=== PATIENT | female | born 1990 | race Caucasian/White ===

== ENCOUNTER 2016-05-10 05:58 | Inpatient (IN) | payer OTHER ==
[2016-05-10] MEDS ORDERED: LACTATED RINGERS 1,000 ML IV ONE (06:11)
[2016-05-10] MEDS ORDERED: ceFAZolin 2 GM in SODIUM CHLORIDE 0.9% 100 ML IVPB ONE (06:11)
[2016-05-10] MEDS ORDERED: CITRIC ACID-SODIUM CITRATE 15 ML CUP PO ONE (06:11)
[2016-05-10 06:14] LABS: Glucose,Whole Blood 105 mg/dL (75-99)
[2016-05-10] MEDS ORDERED: LACTATED RINGERS 1,000 ML IV SCH (06:15)
[2016-05-10 06:23] VITALS: BMI 34.4
[2016-05-10 06:28] LABS: Anisocytosis Slight; Basophils % (A) 0 %; CH 22.8; CHCM 30.1; Eosinophils # (A) 0.1 k/uL (0-0.7); Eosinophils % (A) 2 %; HCT 25.1 % (34.0-46.0); HDW 3.97; HGB 7.5 gm/dL (11.4-16.0); Hypochromasia Marked; Luc # (Auto) 0.18; Luc % (Auto) 3; Lymphocytes # (A) 1.1 k/uL (1.0-4.8); Lymphocytes % (A) 17 %; MCH 22.9 pg (25.0-35.0); MCV 76.3 fL (80.0-100.0); Mean Platelet Volume 7.9; Microcytosis Slight; Monocytes # (A) 0.3 k/uL (0-1.0); Monocytes % (A) 5 %; Neutrophils # (A) 4.7 k/uL (1.3-7.7); Neutrophils % (A) 73 %; Poikilocytosis Slight; RDW 17.5 % (11.5-15.5); WBC 6.5 k/uL (3.8-10.6); WBC (Perox) 6.84
--- NOTE | 2016-05-10 07:52 | P.HPOB ---
History of Present Illness H&P Date: 05/10/16 Chief Complaint: IUP term: previous c/s 25 y/o female sched for repeat c/s. r/b/a reviewed in detail and all questions answered for her. complicated by gest DM A2 on oral hypogycemics. well controlled. also had itching likely PUPPS since mid third trimester treated with steroids with moderate success. denies other problems or issues. VSS and afebrile. Heart reg, Lung CTAB, Abd soft with + BS. ext without pain. Past Medical History Past Medical History: GERD/Reflux Additional Past Medical History / Comment(s): gestational diabetes History of Any Multi-Drug Resistant Organisms: None Reported Past Surgical History: Section Past Anesthesia/Blood Transfusion Reactions: No Reported Reaction Past Psychological History: No Psychological Hx Reported Smoking Status: Never smoker Past Alcohol Use History: None Reported Past Drug Use History: None Reported - Past Family History Mother Family Medical History: Cancer Additional Family Medical History / Comment(s): mother had cervical cancer Medications and Allergies Home Medications Medication Instructions Recorded Confirmed Type glyBURIDE [Glyburide] 1.25 mg PO BID 04/30/16 05/10/16 History Allergies Allergy/AdvReac Type Severity Reaction Status Date / Time No Known Allergies Allergy Verified 05/10/16 06:10 Exam Osteopathic Statement: *. No significant issues noted on an osteopathic structural exam other than those noted in the History and Physical/Consult. - Vital Signs Vital signs: Vital Signs Temp Pulse Resp BP Pulse Ox 05/10/16 06:19 97.6 F 116 H 18 116/69 99 Intake and Output 05/09/16 05/10/16 05/10/16 22:59 06:59 14:59 Other: Weight 91.172 kg - OBG Physical Exam Breast: both: normal (no masses) Abdomen: bowel sounds normal, no diffuse tenderness, no bruit present, no guarding noted, no hepatomegaly, no splenomegaly, no mass Vulva: both: normal Vagina: normal moisture, no discharge Cervix: no lesion, no discharge Uterus: normal size, normal contour Adnexa: both: normal Anus/Rectum: normal perianal skin, no rectal mass, no hemorrhoids, heme negative Results Result Diagrams: 05/10/16 06:15 Abnormal Lab Results - Last 24 Hours (Table) 05/10/16 05/10/16 Range/Units 06:11 06:15 RBC 3.30 L (3.80-5.40) m/uL Hgb 7.5 L (11.4-16.0) gm/dL Hct 25.1 L (34.0-46.0) % MCV 76.3 L (80.0-100.0) fL MCH 22.9 L (25.0-35.0) pg MCHC 30.0 L (31.0-37.0) g/dL RDW 17.5 H (11.5-15.5) % POC Glucose (mg/dL) 105 H (75-99) mg/dL
[2016-05-10] MEDS ORDERED: ONDANSETRON 4 MG/2 ML VIAL IVP PRN ×2 (08:13→08:51)
[2016-05-10] MEDS ORDERED: diphenhydrAMINE 50 MG/ML 1 ML VIAL IVP PRN ×3 (08:13→08:51)
[2016-05-10] MEDS ORDERED: NALOXONE 0.4 MG/ML 1 ML VIAL IV PRN ×2 (08:13→08:51)
[2016-05-10] MEDS ORDERED: MORPHINE SULFATE 4 MG/ML SYRINGE IVP PRN ×2 (08:13→10:40)
--- NOTE | 2016-05-10 08:34 | P.OP ---
Date of Procedure: 05/10/16 Preoperative Diagnosis: Intrauterine at term: Previous section: Gestation diabetes Postoperative Diagnosis: Same Procedure(s) Performed: Repeat low transverse section Anesthesia: spinal Surgeon: Trevor Robles Technical Sales Manager #1: Jered Funez Estimated Blood Loss (ml): 600 IV fluids (ml): 900 Urine output (ml): 100 Pathology: other (Placenta) Condition: stable Disposition: floor Operative Findings: Female scores of 9 and 9 at one and 5 minutes with a weight of 8 lbs. 13 oz. Description of Procedure: Patient was taken to the operating suite where a spinal anesthetic was found to be adequate. She was prepped and draped in the normal sterile fashion and placed in the dorsal supine position with leftward tilt. Initially a Pfannenstiel skin incision was made. This incision was then carried through to underlying layer of the fascia was second knife. Fascia was then nicked in the midline and this opening was extended laterally with Lorenzo scissors. Superior and inferior aspect of this incision were then grasped tented up and bluntly and sharply dissected off the rectus muscles. Rectus muscles were then divided the midline and sharp dissection through the peritoneum was made. This opening was then extended superiorly and inferiorly with good visualization of both bowel bladder. Bladder blade was then placed in the vesicouterine peritoneum identified. This tissue was then entered with Metzenbaum scissors and the opening was extended across face the uterus with the bladder flap being digitally created. Knife was then used to incise uterus hemostat was then used to open the incision and the incision was extended bluntly. Head was then atraumatically delivered. Anterior and posterior shoulders delivered gentle downward upper traction. Mouth nares were bulb suctioned again an nursery personnel was present to assume care following IV and cutting of the umbilical cord. Placenta was then delivered intact and Pitocin was added to the IV. Uterus was exteriorized cleared of clots and debris and closed in 2 layers with 0 Vicryl suture. Once excellent hemostasis was obtained blood and debris was suctioned from the posterior cul-de-sac and the uterus was reinserted into the abdomen. Peritoneal layer was then closed with 0 Vicryl suture fascial layer was closed with 0 Vicryl suture one layer of 3-0 Vicryl was placed in the deep subcuticular tissues and then the skin was closed with 3-0 Vicryl on a Willy needle. Sponge, lap, needle counts were all correct 2. Patient was taken to the recovery room in stable and satisfactory condition.
[2016-05-10] MEDS ORDERED: diphenhydrAMINE 25 MG CAP PO PRN (08:51)
[2016-05-10] MEDS ORDERED: METOCLOPRAMIDE 5 MG/ML 2 ML VIAL IVP PRN (08:51)
[2016-05-10] MEDS ORDERED: diphenhydrAMINE 50 MG CAP PO PRN (08:51)
[2016-05-10] MEDS ORDERED: ZOLPIDEM 5 MG TAB PO PRN (08:51)
[2016-05-10] MEDS ORDERED: ACETAMINOPHEN TAB 325 MG TAB PO PRN (08:51)
[2016-05-10] MEDS ORDERED: Acetaminophen-Codeine 300-30mg TAB PO PRN (08:51)
[2016-05-10 10:13] LABS: Hemoglobin A1C 4.9 % (4.2-6.1)
[2016-05-10] MEDS: SENNOSIDES-DOCUSATE SODIUM 1 EACH TAB PO SCH ×2 (10:51→21:28)
[2016-05-10] MEDS: LACTATED RINGERS 1,000 ML IV SCH ×2 (10:54→20:21)
[2016-05-10] MEDS: KETOROLAC 30 MG/ML 1 ML VIAL IVP PRN ×2 (15:11→21:27)
[2016-05-10] MEDS: OXYTOCIN 30 UNITS/500 ML NS 30 UNIT in SALINE 1 500ML.BAG IV SCH ×2 (20:20→20:21)
[2016-05-11] MEDS: OXYTOCIN 30 UNITS/500 ML NS 30 UNIT in SALINE 1 500ML.BAG IV SCH ×2 (00:23→06:00)
[2016-05-11] MEDS: LACTATED RINGERS 1,000 ML IV SCH (00:23)
[2016-05-11] MEDS: KETOROLAC 30 MG/ML 1 ML VIAL IVP PRN ×2 (03:49→10:35)
[2016-05-11 07:35] LABS: Anisocytosis Slight; Basophils % (A) 0 %; CH 22.7; CHCM 29.4; Eosinophils # (A) 0.1 k/uL (0-0.7); Eosinophils % (A) 2 %; HCT 23.2 % (34.0-46.0); HDW 3.87; Hypochromasia Marked; Luc # (Auto) 0.14; Luc % (Auto) 2; Lymphocytes # (A) 1.1 k/uL (1.0-4.8); Lymphocytes % (A) 17 %; MCH 22.8 pg (25.0-35.0); MCHC 29.2 g/dL (31.0-37.0); Mean Platelet Volume 8.2; Microcytosis Slight; Monocytes # (A) 0.3 k/uL (0-1.0); Monocytes % (A) 4 %; Neutrophils # (A) 4.7 k/uL (1.3-7.7); Neutrophils % (A) 74 %; Poikilocytosis Slight; RBC 2.98 m/uL (3.80-5.40); RDW 17.6 % (11.5-15.5); WBC 6.3 k/uL (3.8-10.6); WBC (Perox) 6.55
[2016-05-11 07:47] LABS: HGB 6.8 gm/dL (11.4-16.0)
[2016-05-11] MEDS ORDERED: OXYTOCIN 10 UNIT/ML 1 ML VIAL IM ONE (07:54)
[2016-05-11] MEDS ORDERED: ePHEDrine 50 MG/ML 1 ML AMP ONE (07:54)
[2016-05-11] MEDS ORDERED: KETOROLAC 30 MG/ML 1 ML VIAL ONE (07:54)
[2016-05-11] MEDS ORDERED: MORPHINE SULFATE (PF) 0.3 MG/0.3 ML SYR ONE (07:54)
[2016-05-11] MEDS ORDERED: NALBUPHINE 10 MG/ML AMPUL ONE (07:54)
[2016-05-11] MEDS ORDERED: MIDAZOLAM 2 MG/2 ML VIAL ONE (07:54)
[2016-05-11] MEDS: SENNOSIDES-DOCUSATE SODIUM 1 EACH TAB PO SCH ×2 (08:51→20:13)
--- NOTE | 2016-05-11 09:00 | P.PNOBGPC ---
Subjective - Subjective Principal diagnosis: Postop day 1 Interval history: Kiera is doing very well postop day 1. Pain is much better controlled today. She is involuting, voiding, and she is tolerating her diet. She voices no other complaints. We'll plan to continue current care. Patient reports: Reports appetite normal, Reports voiding normally, Reports pain well controlled, Reports ambulating normally : doing well Objective - Vital Signs Latest vital signs: Vital Signs Temp Pulse Pulse Resp BP BP Pulse Ox 05/11/16 08:00 97.4 F L 103 H 16 102/57 05/11/16 04:00 97.9 F 103 H 17 104/62 98 05/11/16 00:00 98.2 F 101 H 14 97/51 98 05/10/16 20:00 98.2 F 98 14 105/56 98 05/10/16 15:38 98.2 F 101 H 16 117/68 98 05/10/16 13:00 98.3 F 104 H 16 107/70 98 05/10/16 11:13 100 16 114/68 97 05/10/16 10:37 100 16 109/69 100 05/10/16 10:07 88 17 115/76 100 05/10/16 09:39 90 17 116/72 99 05/10/16 09:24 104 H 17 113/71 99 05/10/16 09:08 104 H 16 107/55 98 Intake and Output 05/10/16 05/11/16 05/11/16 22:59 06:59 14:59 Intake Total 1000 Output Total 500 700 Balance 500 -700 Intake: IV 1000 Lactated Ringers 1,000 ml 1000 @ 125 mls/hr IV .Q8H [facility] Rx#:[id number] Output: Urine 500 700 Uretheral ([place]) 200 Other: Voiding Method Toilet # Voids 1 1 - Exam Lungs: bilateral: normal Chest: Normal S1, Normal S2 Extremities: Present: normal Abdomen: Present: normal appearance, soft. Absent: distention, tenderness Incision: Present: normal, dry, intact Uterus: Present: normal, firm - Labs Labs: Abnormal Lab Results - Last 24 Hours (Table) 05/11/16 Range/Units 07:06 RBC 2.98 L (3.80-5.40) m/uL Hgb 6.8 L* (11.4-16.0) gm/dL Hct 23.2 L (34.0-46.0) % MCV 78.0 L (80.0-100.0) fL MCH 22.8 L (25.0-35.0) pg MCHC 29.2 L (31.0-37.0) g/dL RDW 17.6 H (11.5-15.5) %
--- NOTE | 2016-05-11 10:22 | P.PN ---
Progress Note - Text 0705 Anesthesia POD 1. Patient is status post section under spinal anesthesia with intra-thecal preservative free morphine []. [] pruritus, [] post-op analgesia, and [].
[2016-05-11] MEDS: Acetaminophen-Codeine 300-30mg TAB PO PRN (18:10)
[2016-05-11] MEDS: IBUPROFEN 600 MG TAB PO PRN (22:59)
[2016-05-12] MEDS: Acetaminophen-Codeine 300-30mg TAB PO PRN ×2 (02:58→19:32)
--- NOTE | 2016-05-12 06:31 | P.PNOBGPC ---
Subjective - Subjective Patient reports: Reports appetite normal, Reports voiding normally, Reports pain well controlled, Reports ambulating normally : doing well Objective - Vital Signs Latest vital signs: Vital Signs Temp Pulse Resp BP BP Pulse Ox 05/12/16 00:00 98.1 F 108 H 14 118/68 98 05/11/16 16:00 97.8 F 105 H 16 106/69 05/11/16 08:00 97.4 F L 103 H 16 102/57 - Exam Lungs: bilateral: normal Chest: Normal S1, Normal S2 Extremities: Present: normal Abdomen: Present: normal appearance, soft. Absent: distention, tenderness Incision: Present: normal, dry, intact Uterus: Present: normal, firm - Labs Labs: Abnormal Lab Results - Last 24 Hours (Table) 05/11/16 Range/Units 07:06 RBC 2.98 L (3.80-5.40) m/uL Hgb 6.8 L* (11.4-16.0) gm/dL Hct 23.2 L (34.0-46.0) % MCV 78.0 L (80.0-100.0) fL MCH 22.8 L (25.0-35.0) pg MCHC 29.2 L (31.0-37.0) g/dL RDW 17.6 H (11.5-15.5) % Assessment and Plan (1) Chronic anemia Narrative/Plan: This is postoperative day #2. Patient is resting without new complaints. Some mild tachycardia but otherwise vital signs are stable and she is afebrile. Hemoglobin yesterday was 6.8 postoperatively, preoperatively it was 7.5. Apparently this patient is a chronically anemic and has not been taking her iron therapy. Dr. Robles has asked Dr. Goff to see this patient for continued management and evaluation of her anemia. It appears her anemia is chronic in nature and secondary to noncompliance with iron therapy. At this point her hemoglobin is stable and she is fairly asymptomatic therefore no continued management is necessary in regards to her anemia. Today we will continue routine postoperative care and most likely discharge home tomorrow. Current Visit: Yes Status: Acute Code(s): D64.9 - ANEMIA, UNSPECIFIED SNOMED Code(s): 619368631 (2) delivery delivered Current Visit: Yes Status: Acute Code(s): O82 - ENCOUNTER FOR DELIVERY WITHOUT INDICATION SNOMED Code(s): 075851254
[2016-05-12] MEDS: SENNOSIDES-DOCUSATE SODIUM 1 EACH TAB PO SCH ×2 (08:07→19:33)
[2016-05-12] MEDS: IBUPROFEN 600 MG TAB PO PRN ×2 (08:07→13:56)
[2016-05-12 08:18] LABS: Anisocytosis Slight; Basophils % (A) 0 %; CH 23.2; CHCM 29.6; Eosinophils # (A) 0.2 k/uL (0-0.7); Eosinophils % (A) 4 %; HCT 22.7 % (34.0-46.0); HDW 3.79; Hypochromasia Marked; Luc # (Auto) 0.15; Luc % (Auto) 3; Lymphocytes # (A) 1.3 k/uL (1.0-4.8); Lymphocytes % (A) 21 %; MCHC 29.1 g/dL (31.0-37.0); MCV 78.9 fL (80.0-100.0); Mean Platelet Volume 9.5; Microcytosis Slight; Monocytes # (A) 0.2 k/uL (0-1.0); Monocytes % (A) 3 %; Neutrophils # (A) 4.1 k/uL (1.3-7.7); Neutrophils % (A) 69 %; Poikilocytosis Slight; RBC 2.87 m/uL (3.80-5.40); RDW 17.9 % (11.5-15.5); Reticulocyte % 3.6 % (0.5-2.0); WBC (Perox) 5.89
[2016-05-12 08:21] LABS: HGB 6.6 gm/dL (11.4-16.0)
[2016-05-12 16:36] LABS: Iron 24 ug/dL (37-170)
[2016-05-12 16:47] LABS: % Iron Saturation 4.9 % (20-50); Total Iron Binding Capacity 492 ug/dL (265-497)
[2016-05-12 17:26] LABS: Vitamin B12 <159 pg/mL (239-931)
[2016-05-12 17:44] VITALS: RESP 18
[2016-05-12] MEDS ORDERED: SODIUM FERRIC GLUCONAT-SUCROSE 125 MG in SODIUM CHLORIDE 0.9% 100 ML IVPB ONE (20:08)
--- NOTE | 2016-05-12 20:23 | P.CONS ---
History of Present Illness - Reason for Consult Consult date: 05/12/16 Severe microcytic anemia - History of Present Illness The patient is a 25-year-old lady, who was admitted for section, that was performed yesterday, with delivery of healthy female . On admission her hemoglobin was 7.5, with low MCV in the 70 range. Subsequently hemoglobin fell to 6.8. Consult was placed for further evaluation. Her labs were reviewed in the chart. In 10/25, during her previous delivery, hemoglobin had been as low as 5.9, also with low MCV. During this , between 10/27 and 12/27, hemoglobin was again low in the 10-11 range with low MCV. Other CBC indices, including white cells and platelets were normal. The patient denies any unusual bleeding. She has not been taking her vitamins. She states that she has been told in the past that she needs to take iron but was unable to tolerate even low-dose of iron PO due to severe constipation. Review of Systems Constitutional: Reports fatigue, Reports weight gain (Due to ) Eyes: denies blurred vision, denies pain Ears: deny: decreased hearing, ear discharge, earache, tinnitus Ears, nose, mouth and throat: Denies headache, Denies sore throat Cardiovascular: Reports decreased exercise tolerance Respiratory: Denies cough Gastrointestinal: Denies abdominal pain, Denies diarrhea, Denies nausea, Denies vomiting Genitourinary: Denies dysuria, Denies hematuria Musculoskeletal: Denies myalgias Integumentary: Denies pruritus, Denies rash Neurological: Denies numbness, Denies weakness Psychiatric: Denies anxiety, Denies depression Endocrine: Reports high blood sugars Hematologic/Lymphatic: Reports as per HPI Past Medical History Past Medical History: GERD/Reflux Additional Past Medical History / Comment(s): gestational diabetes History of Any Multi-Drug Resistant Organisms: None Reported Past Surgical History: Section Past Anesthesia/Blood Transfusion Reactions: No Reported Reaction Past Psychological History: No Psychological Hx Reported Smoking Status: Never smoker Past Alcohol Use History: None Reported Past Drug Use History: None Reported - Past Family History Mother Family Medical History: Cancer Additional Family Medical History / Comment(s): mother had cervical cancer Medications and Allergies Home Medications Medication Instructions Recorded Confirmed Type glyBURIDE [Glyburide] 1.25 mg PO BID 04/30/16 05/10/16 History Allergies Allergy/AdvReac Type Severity Reaction Status Date / Time No Known Allergies Allergy Verified 05/10/16 06:10 Physical Exam Vitals: Vital Signs Temp Pulse Pulse Resp BP BP BP 05/12/16 17:42 97.7 F 94 18 116/69 05/12/16 10:37 97.9 F 108 H 16 113/73 05/12/16 09:55 97.6 F 105 H 17 112/73 05/12/16 09:25 97.5 F L 103 H 17 113/75 05/12/16 09:15 97.6 F 108 H 16 120/78 05/12/16 08:00 97.6 F 95 16 104/73 05/12/16 00:00 98.1 F 108 H 14 118/68 Pulse Ox 05/12/16 17:42 100 05/12/16 10:37 05/12/16 09:55 05/12/16 09:25 05/12/16 09:15 05/12/16 08:00 05/12/16 00:00 98 Intake and Output 05/12/16 05/12/16 05/12/16 06:59 14:59 22:59 Intake Total 310 Balance 310 Intake: Blood Product 310 Rc As-1 Unit 310 [id number] - Constitutional General appearance: no acute distress - EENT Eyes: EOMI, PERRLA ENT: hearing grossly normal, normal oropharynx - Neck Neck: no lymphadenopathy Thyroid: bilateral: normal size - Respiratory Respiratory: bilateral: CTA - Cardiovascular Rhythm: regular Heart sounds: normal: S1, S2 - Gastrointestinal General gastrointestinal: distended - Integumentary Integumentary: normal - Neurologic Neurologic: CNII-XII intact - Musculoskeletal Musculoskeletal: strength equal bilaterally - Psychiatric Psychiatric: A&O x's 3, appropriate affect Results CBC & Chem 7: 05/12/16 07:49 Labs: Abnormal Lab Results - Last 24 Hours (Table) 05/10/16 05/12/16 05/12/16 Range/Units 06:15 07:49 07:49 RBC 2.87 L (3.80-5.40) m/uL Hgb 6.6 L* (11.4-16.0) gm/dL Hct 22.7 L (34.0-46.0) % MCV 78.9 L (80.0-100.0) fL MCH 23.0 L (25.0-35.0) pg MCHC 29.1 L (31.0-37.0) g/dL RDW 17.9 H (11.5-15.5) % Retic Count 3.6 H (0.5-2.0) % Iron 24 L (37-170) ug/dL % Saturation 4.9 L (20-50) % Ferritin 5 L (6-137) ng/mL Vitamin B12 <159 L (239-931) pg/mL Crossmatch See Detail Assessment and Plan (1) Chronic anemia Narrative/Plan: As noted in the HPI, the patient is fairly chronic microcytic anemia. Reviewing her previous , also, her hemoglobin dropped significantly. The clinical picture is quite consistent with iron deficiency, from her regular menses, as well as pregnancies. The patient has not been taking any iron supplementation. This is due to GI intolerance of even low doses of by mouth iron. In addition the patient states that she has not even been taking her 's. Has hemoglobin was still low today with some tachycardia, I recommended that she will transfuse a unit of blood that was on hold. Anemia workup has been ordered. Assuming that labs confirm iron deficiency, she will be treated with IV iron, starting now, and continuing in the outpatient setting with monitoring in the office. Additional supplementation will be ordered as appropriate, if the patient is found to have other deficiencies Status: Acute
[2016-05-12] MEDS: CYANOCOBALAMIN 1,000 MCG/ML 1 ML VIAL IM SCH (20:57)
[2016-05-12] MEDS: FOLIC ACID 1 MG TAB PO SCH (20:57)
[2016-05-13] MEDS: IBUPROFEN 600 MG TAB PO PRN (02:17)
--- NOTE | 2016-05-13 06:40 | P.PNOBGPC ---
Subjective - Subjective Patient reports: Reports appetite normal, Reports voiding normally, Reports pain well controlled, Reports ambulating normally : doing well Objective - Vital Signs Latest vital signs: Vital Signs Temp Pulse Pulse Resp BP BP BP 05/13/16 00:00 97.6 F 100 18 113/77 05/12/16 17:42 97.7 F 94 18 116/69 05/12/16 10:37 97.9 F 108 H 16 113/73 05/12/16 09:55 97.6 F 105 H 17 112/73 05/12/16 09:25 97.5 F L 103 H 17 113/75 05/12/16 09:15 97.6 F 108 H 16 120/78 05/12/16 08:00 97.6 F 95 16 104/73 Pulse Ox 05/13/16 00:00 100 05/12/16 17:42 100 05/12/16 10:37 05/12/16 09:55 05/12/16 09:25 05/12/16 09:15 05/12/16 08:00 Intake and Output 05/12/16 05/12/16 05/13/16 14:59 22:59 06:59 Intake Total 310 200 Balance 310 200 Intake: IV 100 Invasive Line 1 100 Intake, IV Titration 100 Amount Sodium Ferric Gluconat- 100 Sucrose 125 mg In Sodium Chloride 0.9% 100 ml @ 100 mls/hr IVPB ONCE ONE Rx#:[id number] Blood Product 310 Rc As-1 Unit 310 [id number] - Exam Lungs: bilateral: normal Chest: Normal S1, Normal S2 Extremities: Present: normal Abdomen: Present: normal appearance, soft. Absent: distention, tenderness Incision: Present: normal, dry, intact Uterus: Present: normal, firm - Labs Labs: Abnormal Lab Results - Last 24 Hours (Table) 05/10/16 05/12/16 05/12/16 Range/Units 06:15 07:49 07:49 RBC 2.87 L (3.80-5.40) m/uL Hgb 6.6 L* (11.4-16.0) gm/dL Hct 22.7 L (34.0-46.0) % MCV 78.9 L (80.0-100.0) fL MCH 23.0 L (25.0-35.0) pg MCHC 29.1 L (31.0-37.0) g/dL RDW 17.9 H (11.5-15.5) % Retic Count 3.6 H (0.5-2.0) % Iron (37-170) ug/dL % Saturation (20-50) % Ferritin (6-137) ng/mL Vitamin B12 (239-931) pg/mL RBC Folate 1,424 H (280 - 791) ng/mL Crossmatch See Detail 05/12/16 Range/Units 07:49 RBC (3.80-5.40) m/uL Hgb (11.4-16.0) gm/dL Hct (34.0-46.0) % MCV (80.0-100.0) fL MCH (25.0-35.0) pg MCHC (31.0-37.0) g/dL RDW (11.5-15.5) % Retic Count (0.5-2.0) % Iron 24 L (37-170) ug/dL % Saturation 4.9 L (20-50) % Ferritin 5 L (6-137) ng/mL Vitamin B12 <159 L (239-931) pg/mL RBC Folate (280 - 791) ng/mL Crossmatch Assessment and Plan (1) Chronic anemia Narrative/Plan: This is postoperative day #3. Patient is resting without new complaints. Patient was seen by Dr. Tan yesterday and given one unit of blood and an iron infusion. Patient is tolerating regular diet, ambulating, urinating without difficulty. Patient's felt be stable for discharge home. Patient discharge home follow up with Dr. Robles next week. She will continue to follow up with Dr. Goff thereafter to see if she needs another iron infusion for further management of her anemia as necessary. Current Visit: Yes Status: Acute Code(s): D64.9 - ANEMIA, UNSPECIFIED SNOMED Code(s): 075887730 (2) delivery delivered Current Visit: Yes Status: Acute Code(s): O82 - ENCOUNTER FOR DELIVERY WITHOUT INDICATION SNOMED Code(s): 034200507
--- NOTE | 2016-05-13 06:43 | P.DS ---
Providers Date of admission: 05/10/16 05:58 Expected date of discharge: 05/13/16 Attending physician: Trevor Robles Consults: 05/11/16 15:14 Consult Physician Stat Consulting Provider: Vinicius Goff Consult Reason/Comments: critical hemoglobin value Do you want consulting provider notified?: Already Contacted Primary care physician: Mulugeta Stevenson - Discharge Diagnosis(es) (1) Chronic anemia Current Visit: Yes Status: Acute (2) delivery delivered Current Visit: Yes Status: Acute Hospital Course: Please see dictated H&P and operative note per Dr. Robles on this patient. In brief summary this is a 27-year-old 3 para 1 female 39 weeks with known chronic anemia who is admitted for elective repeat section. Patient undergoes a repeat low transverse section for a viable female . Preoperative hemoglobin is 7-1/2 and postoperative hemoglobin was 6.8. Consultation was obtained with Dr. Goff and she was given a unit of blood and also an iron infusion. Postoperative day #3 she is felt be stable for discharge home follow up as an outpatient with Dr. Robles and Dr. Goff Procedures: Repeat low transverse section Patient Condition at Discharge: Fair Plan - Discharge Summary New Discharge Prescriptions: Acetaminophen-Codeine 300-30mg [Tylenol #3] 1 tab PO Q4H PRN #30 tablet PRN Reason: Pain Ibuprofen [Motrin] 600 mg PO Q6HR PRN #30 tab PRN Reason: Pain Discharge Medication List glyBURIDE [Glyburide] 1.25 mg PO BID 04/30/16 [History] Acetaminophen-Codeine 300-30mg [Tylenol #3] 1 tab PO Q4H PRN #30 tablet [Rx] Ibuprofen [Motrin] 600 mg PO Q6HR PRN #30 tab 05/11/16 [Rx] Follow up Appointment(s)/Referral(s): Trevor Robles DO [Doctor of Osteopathic Medicine] - 05/21/16 1:30 pm (Patient also has a check on June 21 at 10:30 AM.) Activity/Diet/Wound Care/Special Instructions: No heavy lifting, limit stairs and driving and pelvic rest. If any high temperatures, heavy bleeding, or severe pain call my office Discharge Disposition: HOME SELF-CARE
[2016-05-13 09:06] VITALS: BP 137/69; PULSE 99; TEMP 98
[2016-05-13] MEDS: CYANOCOBALAMIN 1,000 MCG/ML 1 ML VIAL IM SCH (10:27)
[2016-05-13] MEDS: FOLIC ACID 1 MG TAB PO SCH (10:27)
[2016-05-13] MEDS: SENNOSIDES-DOCUSATE SODIUM 1 EACH TAB PO SCH (10:57)
--- NOTE | 2016-05-13 16:56 | P.PN ---
Subjective Principal diagnosis: severe anemia Pt seen today in follow up, she is denying any severe hemorrhage. She did receive a dose of venofer with no c/o. Objective - Vital Signs Vital signs: Vital Signs Temp 98.0 F 05/13/16 08:00 Pulse 99 05/13/16 08:00 Resp 18 05/13/16 08:00 BP 137/69 05/13/16 08:00 Pulse Ox 100 05/13/16 08:00 Intake & Output 05/12/16 05/13/16 05/13/16 18:59 06:59 18:59 Intake Total 310 200 Balance 310 200 Intake: IV 100 Invasive Line 1 100 Intake, IV Titration 100 Amount Sodium Ferric Gluconat- 100 Sucrose 125 mg In Sodium Chloride 0.9% 100 ml @ 100 mls/hr IVPB ONCE ONE Rx#:[id number] Blood Product 310 Rc As-1 Unit 310 [id number] - Constitutional General appearance: Present: average body habitus, cooperative, no acute distress - Integumentary Integumentary: Present: normal turgor, pale - Neurologic Neurologic: Present: CNII-XII intact - Musculoskeletal Musculoskeletal: Present: strength equal bilaterally - Psychiatric Psychiatric: Present: A&O x's 3, appropriate affect, intact judgment & insight - Labs CBC & Chem 7: 05/12/16 07:49 Labs: Abnormal Lab Results - Last 24 Hours (Table) 05/12/16 05/12/16 Range/Units 07:49 07:49 Iron 24 L (37-170) ug/dL % Saturation 4.9 L (20-50) % Ferritin 5 L (6-137) ng/mL Vitamin B12 <159 L (239-931) pg/mL RBC Folate 1,424 H (280 - 791) ng/mL Assessment and Plan (1) Iron deficiency anemia Status: Acute (2) B12 deficiency anemia Status: Acute Plan: Pt has severe deficiency of iron and B12, she received a dose of venofer and a B12 injection. Rx were given to pt for oral b12 and folic acid. I told her that our office will check with her insurance and find out how she can receive more parenteral iron as she does not tolerate oral iron well at all due to severe constipation. Once pt has received course of IV iron she will follow up with Dr. Goff for reevaluation of iron stores.
== END 2016-05-13 12:30 | disposition home or self-care (01) | DRG 766 ==
LOC: 4FBP 05:58
PROVIDERS: ADMIT Obstetrics & Gynecology; ATTEND Obstetrics & Gynecology
PROC: 30233N1 Transfusion of Nonautologous Red Blood Cells into Peripheral Vein, Percutaneous Approach (ICD-10-PCS; principal; 2016-05-10 08:00)
PROC: 10D00Z1 Extraction of Products of Conception, Low, Open Approach (ICD-10-PCS; principal; 2016-05-10 08:00)
DX: O34.211 Maternal care for low transverse scar from previous cesarean delivery (principal); D51.9 Vitamin B12 deficiency anemia, unspecified; Z37.0 Single live birth; O24.425 Gestational diabetes mellitus in childbirth, controlled by oral hypoglycemic drugs; O26.86 Pruritic urticarial papules and plaques of pregnancy (PUPPP); O99.02 Anemia complicating childbirth; Z91.14 Patient's other noncompliance with medication regimen; Z3A.39 39 weeks gestation of pregnancy
CPT/HCPCS: 82607; 82728; 82747; 83010; 83036; 83540; 83550; 85025; 85045; 86850; 86900; 86901; 86920; 88307

== ENCOUNTER → 2016-12-07 | Outpatient (CLI) | payer OTHER ==
[2016-12-07 16:24] LABS: CH 27.9; CHCM 33.9; HCT 38.2 % (34.0-46.0); HGB 12.4 gm/dL (11.4-16.0); MCH 26.7 pg (25.0-35.0); MCHC 32.4 g/dL (31.0-37.0); MCV 82.5 fL (80.0-100.0); Mean Platelet Volume 7.4; RBC 4.64 m/uL (3.80-5.40); RDW 15.4 % (11.5-15.5); WBC 6.9 k/uL (3.8-10.6)
--- NOTE | 2016-12-07 16:28 | US ---
EXAMINATION TYPE: US OB <= 14 wk fetus DATE OF EXAM: 12/07/2016 COMPARISON: NONE CLINICAL HISTORY: Z36 Confirm dates. Confirm dates EXAM PERFORMED: Transabdominal (TA) EXAM MEASUREMENTS: GESTATIONAL AGE / DATING Physician Established: (9 weeks/5 days) EDC: 07/07/2017 Dates by LMP: ( 9 weeks/5 days) EDC: 07/07/2017 Dates by First Scan: This is first scan Dates by Current Scan for: ( 9 weeks/4 days) EDC: 07/08/2017 MATERNAL ANATOMY Uterus: 8.2 x 7.2 x 9.4cm, retroverted Right Ovary: 2.7 x 1.7 x 1.9cm Left Ovary: 2.5 x 2.0 x 1.8cm Post CDS / Adnexa: wnl Presence of free fluid: no Presence of corpus luteal cyst: not seen at this time Presence of subchorionic bleed: 2.8 x 0.8 x 2.6cm hypoechoic area superior to gestational sac GESTATION / SURVEY CRL: 2.7cm (9 weeks/4 days) Yolk Sac (normal less than 6mm): not seen at this time Heart Rate: 170 bpm Rhythm: Normal IUP: Viable IUP Date of LMP: 09/30/16 Beta HcG (if available): Not available at time of exam Viable single IUP measuring 9 weeks 4 days with a heart rate of 170bpm and an estimated delivery date of 07/08/2017, elongated 2.8cm hypoechoic area superior to gestation sac, possible subchorionic blee d. Single live intrauterine gestation is confirmed as gestational sac and pole are identified. Yol k sac is not clearly identified. No free fluid is seen in pelvic cul-de-sac. Along superior aspect of uterus there is curvilinear fluid collection measuring 2.8 x 0.8 x 2.6 cm brielle towards end of study felt to reflect small subchorionic hemorrhage. Both ovaries are identified. There is no suspicious extraovarian adnexal mass seen. IMPRESSION: Single live intrauterine gestation is confirmed, mean crown-rump length is 2.7 cm corresponding to 9 week 4 day old fetus.
[2016-12-07 17:03] LABS: Glucose 82 mg/dL (74-99); Non-African American GFR(MDRD) >60 (>60 ml/min/1.73 sqM)
[2016-12-07 17:44] LABS: Hepatitis B Surface Ag Index 0.07
[2016-12-07 17:52] LABS: Vitamin B12 247 pg/mL (239-931)
[2016-12-07 20:56] LABS: Hemoglobin A1C 4.6 % (4.2-6.1)
[2016-12-08 02:30] LABS: Iron 41 ug/dL (50-170); Iron Saturation 11.55 (12.00-45.00); Total Iron Binding Capacity 355 ug/dL (228-460)
[2016-12-08 02:36] LABS: Treponemal Ab Non-Reactive (Non-Reactive)
== END | disposition home or self-care (01) ==
LOC: RADUSWWP 15:38
PROVIDERS: ATTEND Obstetrics & Gynecology
DX: Z36 Encounter for antenatal screening of mother (principal); O26.811 Pregnancy related exhaustion and fatigue, first trimester; Z3A.09 9 weeks gestation of pregnancy
CPT/HCPCS: 36415; 76801; 82565; 82607; 82728; 82947; 83036; 83540; 83550; 85027; 86762; 86780; 86850; 86870; 86880; 86886; 86900; 86901; 86902; 87340; 87390

== ENCOUNTER → 2017-03-25 | Outpatient (CLI) | payer OTHER | END | disposition home or self-care (01) | LOC: LABWHC1 09:37 | PROVIDERS: ATTEND Obstetrics & Gynecology | DX: Z34.82 Encounter for supervision of other normal pregnancy, second trimester (principal); Z3A.00 Weeks of gestation of pregnancy not specified | CPT/HCPCS: 36415; 82950 ==

== ENCOUNTER 2017-04-19 22:35 | Observation (INO) | payer OTHER ==
[2017-04-20 00:58] LABS: Basophils % (A) 0 %; Eosinophils # (A) 0.1 k/uL (0-0.7); Eosinophils % (A) 1 %; HCT 30.7 % (34.0-46.0); HGB 10.1 gm/dL (11.4-16.0); Hypochromasia Slight; Lymphocytes # (A) 1.4 k/uL (1.0-4.8); Lymphocytes % (A) 16 %; MCH 27.3 pg (25.0-35.0); MCHC 32.8 g/dL (31.0-37.0); MCV 83.1 fL (80.0-100.0); Mean Platelet Volume 7.1; Monocytes # (A) 0.4 k/uL (0-1.0); Monocytes % (A) 4 %; Neutrophils # (A) 6.8 k/uL (1.3-7.7); Neutrophils % (A) 76 %; Platelet Count 220 k/uL (150-450); Poikilocytosis Slight; RDW 15.5 % (11.5-15.5); WBC 8.9 k/uL (3.8-10.6)
[2017-04-20 09:28] VITALS: BP 98/53; PULSE 100; RESP 18; TEMP 99.3; BMI 32.2
--- NOTE | 2017-04-20 10:49 | US ---
EXAMINATION TYPE: US OB >= 14 wk fetus DATE OF EXAM: 04/20/2017 COMPARISON: None CLINICAL HISTORY: bleeding 28 weeks gestation History of low lying placenta, vaginal bleeding TECHNIQUE: Transabdominal (TA) GESTATIONAL AGE / DATING Physician Established: (28 weeks/6 days) EDC: 07/07/17 Dates by LMP: (28 weeks/6 days) EDC: 07/07/17 Dates by First Scan: (28 weeks/5 days) EDC: 07/08/17 Dates by Current Scan: (28 weeks/4 days) EDC: 07/09/17 SURVEY IUP: Single PLACENTA: Posterior PREVIA: Low Lying. This appears to terminate approximately 7 mm from the internal cervical os. KATHE: 13.0 cm Normal CERVICAL LENGTH (transabdominal: norm > 3.0cm): 3.9 cm BIOMETRY PRESENTATION: Vertex LIE: Longitudinal BPD: 7.3 cm 29 weeks / 1 days HC: 26.5 cm 28 weeks / 6 days AC: 24.8 cm 29 weeks / 0 days FL: 5.4 cm 28 weeks / 5 days ESTIMATED WEIGHT IN GRAMS: 1309 grams ESTIMATED WEIGHT IN LBS/OZ: 2 lbs. 14 oz. WEIGHT PERCENTAGE BASED ON ESTABLISHED DATES: 39.7% HC/AC: 1.07 Normal FL/AC: 21.93 Normal HEART RATE: 133 bpm RHYTHM: Normal Single live IUP 28wks/4days with OLYA of 07/09/17. Placenta appears low lying at this time. Technical limitations due to position. IMPRESSION: 1. Single live intrauterine with a sonographic age of 28 weeks and 4 days and estimated joanne e of delivery of 07/09/2017 concordant with menstrual age. 2. Grade 1 placenta previa (low-lying placenta). Surveillance is recommended in addition to repeat ul trasound at 32 weeks to assess for migration.
--- NOTE | 2017-04-20 13:16 | P.HPOB ---
History of Present Illness H&P Date: 04/20/17 Chief Complaint: Intrauterine at 28 weeks gestation with bleeding Kiera is a 26-year-old at 28 weeks gestation who arrives last night complaining of vaginal bleeding. She has a history of vaginal bleeding over the last several weeks and has seen maternal medicine about this. Her course is also, K by positive Rh antibody for anti-E. She furthermore failed her 1 hour Glucola screen and therefore I am be exercising caution and not giving steroids at this time due to Elias speaking with maternal - medicine this morning. Patient relates that after seen yesterday and having a long conversation about her not coming to the hospital despite having recurrent episodes of bleeding. She was evaluated by maternal- medicine at least a couple weeks ago and was noted to have low-lying placenta at that time but no other findings were noted. In seeing her this morning. 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 At this time there is scant to no bleeding. I did call and speak with Dr. Romo at the [address] [place] [phone] medicine and a decision to discharge her and have her be reevaluated at maternal- medicine stay was made. With no active bleeding noted and baby having a reactive strip despite being only 28 weeks 5 days gestation will plan to discharge her this morning and she'll follow up with them later today. She is aware that the bleeding risk is something we cannot really explain at this time but that is significantly impacting the and creating a even higher risk for her during the . On physical exam vital signs are stable and afebrile. Heart regular, lungs clear, extremities are without pain. Scant bleeding is noted no source for bleeding could be elucidated. Ultrasound was done and other than low-lying placenta again being discovered no other findings are noted. Assessment intrauterine 29 weeks. Plan Will discharge her to [facility] today and she will follow up with them today and await further recommendations. Past Medical History Past Medical History: GERD/Reflux Additional Past Medical History / Comment(s): gestational diabetes with two previous pregnancies History of Any Multi-Drug Resistant Organisms: None Reported Past Surgical History: Section Additional Past Surgical History / Comment(s): c/s x 2, bunionectomy, left foot surgery to remove wood injury Past Anesthesia/Blood Transfusion Reactions: No Reported Reaction Additional Past Anesthesia/Blood Transfusion Reaction / Comment(s): pos blood type, pos blood antibody. Past Psychological History: No Psychological Hx Reported Smoking Status: Never smoker Past Alcohol Use History: None Reported Past Drug Use History: None Reported - Past Family History Mother Family Medical History: Cancer Additional Family Medical History / Comment(s): mother had cervical cancer Medications and Allergies Home Medications Medication Instructions Recorded Confirmed Type No Known Home Medications [No 04/20/17 04/20/17 History Known Home Medications] Allergies Allergy/AdvReac Type Severity Reaction Status Date / Time No Known Allergies Allergy Verified 04/20/17 00:01 Exam Osteopathic Statement: *. No significant issues noted on an osteopathic structural exam other than those noted in the History and Physical/Consult. - Vital Signs Vital signs: Vital Signs Temp Pulse Resp BP Pulse Ox 04/20/17 09:16 99.3 F 100 18 98/53 98 04/20/17 08:30 99.3 F 100 18 98/53 98 Intake and Output 04/19/17 04/20/17 04/20/17 22:59 06:59 14:59 Other: Weight 85.275 kg 85.275 kg Patient Weight 04/21/17 06:59 Weight 85.275 kg Results Result Diagrams: 04/20/17 00:40 Abnormal Lab Results - Last 24 Hours (Table) 04/20/17 Range/Units 00:40 RBC 3.70 L (3.80-5.40) m/uL Hgb 10.1 L (11.4-16.0) gm/dL Hct 30.7 L (34.0-46.0) %
--- NOTE | 2017-04-20 13:18 | P.DS ---
Providers Date of admission: 04/20/17 00:01 Expected date of discharge: 04/20/17 Attending physician: Jacey Whtilock Primary care physician: Stated None Hospital Course: Kiera was seen and evaluated and discharged to drive to [place] on this afternoon and be reevaluated by maternal medicine since she has no active bleeding at this time. All questions are answered for her and she is stable for discharge at this time no other changes are noted. Patient Condition at Discharge: Stable Plan - Discharge Summary Discharge Rx Participant: No New Discharge Prescriptions: No Action No Known Home Medications [No Known Home Medications] Discharge Medication List No Known Home Medications [No Known Home Medications] 04/20/17 [History] Activity/Diet/Wound Care/Special Instructions: DISCHARGE HOME. BEDREST WITH LIGHT ACTIVITY. PELVIC REST. NO INTERCOURSE. KEEP SCHEDULED APPT WITH DR JAVIER AT [facility] IN [place]. Discharge Disposition: HOME SELF-CARE
== END 2017-04-20 11:30 | disposition home or self-care (01) ==
LOC: FBPOP 22:35 → 4FBP 04-20 00:01
PROVIDERS: ADMIT Obstetrics & Gynecology; ATTEND Obstetrics & Gynecology
DX: O46.93 Antepartum hemorrhage, unspecified, third trimester (principal); Z3A.28 28 weeks gestation of pregnancy; K21.9 Gastro-esophageal reflux disease without esophagitis; O99.613 Diseases of the digestive system complicating pregnancy, third trimester; Z86.32 Personal history of gestational diabetes; O34.219 Maternal care for unspecified type scar from previous cesarean delivery; Z80.49 Family history of malignant neoplasm of other genital organs; O44.43 Low lying placenta NOS or without hemorrhage, third trimester
CPT/HCPCS: 59025; 86900; 86901; 86902; 85025; 86850; 86870; 86880; 76805; G0463; G0378; 99213

== ENCOUNTER → 2017-04-27 | Outpatient (CLI) | payer OTHER ==
[~2017-04-27] MED LIST: LACTATED RINGERS 1,000 ML IV SCH
[2017-04-27 21:32] LABS: Partial Thromboplastin Time 23.9 sec (22.0-30.0); Prothrombin Time 9.6 sec (9.0-12.0)
[2017-04-27 21:34] LABS: Basophils % (A) 0 %; Eosinophils # (A) 0.1 k/uL (0-0.7); Eosinophils % (A) 2 %; HGB 9.3 gm/dL (11.4-16.0); Hypochromasia Slight; Lymphocytes # (A) 1.7 k/uL (1.0-4.8); Lymphocytes % (A) 21 %; MCH 26.2 pg (25.0-35.0); MCHC 32.2 g/dL (31.0-37.0); MCV 81.2 fL (80.0-100.0); Mean Platelet Volume 7.9; Monocytes # (A) 0.3 k/uL (0-1.0); Monocytes % (A) 4 %; Neutrophils # (A) 5.6 k/uL (1.3-7.7); Neutrophils % (A) 71 %; Platelet Count 205 k/uL (150-450); Poikilocytosis Slight; RBC 3.57 m/uL (3.80-5.40); RDW 15.4 % (11.5-15.5); WBC 7.9 k/uL (3.8-10.6)
--- NOTE | 2017-04-27 22:09 | P.HPOB ---
History of Present Illness H&P Date: 04/27/17 Chief Complaint: Bleeding and . This patient is a 26-year-old 4 para 2 female estimated date of confinement 07/07/2017 estimated gestational age 29-6/7 weeks gestation who called this evening with complaints of bleeding over the last 4+ days and it has increased in severity throughout today. Patient's care is per Dr. Robles has been complicated by noncompliance and chronic second and third trimester bleeding. Patient was initially thought to have a low-lying placenta or marginal previa however most recent evaluation by maternal medicine did not show any evidence of a low-lying placenta or placental abruption. Patient was admitted by Dr. Robles approximately 1 week ago and then she was subsequently discharged and went to maternal- medicine for evaluation of this bleeding and evaluation at that time was negative. Patient states that she 's continued to bleed and did see Dr. Robles yesterday however today her bleeding has increased in severity. Patient has a history of gestational diabetes with her other 2 pregnancies and however despite urging him in this has not done the appropriate glucose testing until yesterday. Her 3 hour glucose tolerance test yesterday did have 2 abnormal values consistent with gestational diabetes. Patient's is also complicated by a positive anti-E antibody which per maternal- medicine has been felt to be secondary to history of a blood transfusion. heart tones are reassuring without decelerations. Patient is unable to give me a pad count today because she said she just flushes the blood. Review of Systems Constitutional: Reports as per HPI Genitourinary: Reports as per HPI, Reports abnormal vaginal bleeding, Reports Past Medical History Past Medical History: GERD/Reflux Additional Past Medical History / Comment(s): Gestational diabetes with two previous pregnancies. Positive anti-E antibody. History of Any Multi-Drug Resistant Organisms: None Reported Past Surgical History: Section Additional Past Surgical History / Comment(s): c/s x 2, bunionectomy, left foot surgery to remove wood injury Past Anesthesia/Blood Transfusion Reactions: No Reported Reaction Additional Past Anesthesia/Blood Transfusion Reaction / Comment(s): pos blood type, pos blood antibody. Past Psychological History: No Psychological Hx Reported Smoking Status: Never smoker Past Alcohol Use History: None Reported Past Drug Use History: None Reported - Past Family History Mother Family Medical History: Cancer Additional Family Medical History / Comment(s): mother had cervical cancer Medications and Allergies Home Medications Medication Instructions Recorded Confirmed Type No Known Home Medications [No 04/20/17 04/20/17 History Known Home Medications] Allergies Allergy/AdvReac Type Severity Reaction Status Date / Time No Known Allergies Allergy Verified 04/27/17 20:58 Exam - Vital Signs Vital signs: Intake and Output 04/27/17 04/27/17 04/27/17 06:59 14:59 22:59 Other: Weight 84.822 kg Patient Weight 04/28/17 06:59 Weight 84.822 kg - OBG Physical Exam Abdomen: bowel sounds normal, no diffuse tenderness, no bruit present, no guarding noted, no hepatomegaly, no splenomegaly, no mass Vulva: both: normal Vagina: no discharge Cervix: Cervix appears closed. There is a mild to moderate amount of dark red blood in the vaginal vault but no active bleeding Uterus: enlarged Results Patient's blood type is a positive, ultrasound shows a appropriately grown fetus 30 weeks and 1 day without evidence of placental abruption or low lying placenta. Amniotic fluid is normal. Coagulation factors are normal. Result Diagrams: 04/27/17 21:10 Abnormal Lab Results - Last 24 Hours (Table) 04/27/17 Range/Units 21:10 RBC 3.57 L (3.80-5.40) m/uL Hgb 9.3 L (11.4-16.0) gm/dL Hct 29.0 L (34.0-46.0) % Assessment and Plan Assessment: This patient is a 26-year-old 4 para 2 female 29-6/7 weeks gestation with chronic and recurrent second and third trimester bleeding of unknown etiology. At this point there is no evidence of placental abruption or maternal compromise, however due to the increased amount of bleeding I feel is best to transfer this patient to a tertiary facility in the event she does need delivery. Patient also was noncompliant with testing is recently diagnosed with gestational diabetes and therefore she were to need steroids would need close Glucola regulation. I discussed with [facility] in [place] and they've agreed to accept her in transfer and therefore we'll transfer her per EMS for further evaluation and treatment. Patient understands the need for transfer due to prematurity and the need for possible care. All the patient's questions are answered and she understands the clinical plan. (1) Third trimester bleeding Current Visit: Yes Status: Acute Code(s): O46.93 - ANTEPARTUM HEMORRHAGE, UNSPECIFIED, THIRD TRIMESTER SNOMED Code(s): 331228512 (2) Gestational diabetes Current Visit: Yes Status: Acute Code(s): O24.419 - GESTATIONAL DIABETES MELLITUS IN , UNSP CONTROL SNOMED Code(s): 26630807 (3) Non-compliance Current Visit: Yes Status: Acute Code(s): Z91.19 - PATIENT'S NONCOMPLIANCE W OTH MEDICAL TREATMENT AND REGIMEN SNOMED Code(s): 7527959
--- NOTE | 2017-04-27 22:18 | P.DS ---
Providers Expected date of discharge: 04/27/17 Attending physician: Jered Funez Primary care physician: Stated None - Discharge Diagnosis(es) (1) Third trimester bleeding Current Visit: Yes Status: Acute (2) Gestational diabetes Current Visit: Yes Status: Acute (3) Non-compliance Current Visit: Yes Status: Acute Hospital Course: Please see dictated H&P for intimate details of this patient's admission. Brief summary this 26-year-old 4 para 2 female 29-6/7 weeks gestation with chronic second and third trimester bleeding and increased bleeding today. Patient is admitted to triage and evaluation here showed no evidence of placental abruption with increased vaginal bleeding. Is no evidence of compromise or imminent delivery however patient's felt to be at risk for delivery in the future and therefore was transferred to [facility] for and maternal medicine care. Patient Condition at Discharge: Stable Plan - Discharge Summary New Discharge Prescriptions: No Action No Known Home Medications [No Known Home Medications] Discharge Medication List No Known Home Medications [No Known Home Medications] 04/20/17 [History] Discharge Disposition: OTHER INSTITUTION NOT DEFINED
--- NOTE | 2017-04-27 22:33 | US ---
EXAMINATION TYPE: US OB >= 14 wk fetus DATE OF EXAM: 04/27/2017 COMPARISON: None CLINICAL HISTORY: bleedingBleeding hx of low lying placenta. TECHNIQUE: Transabdominal (TA) GESTATIONAL AGE / DATING Physician Established: (29 weeks/6 days) EDC: 07/07/2017 Dates by LMP: (29 weeks/6 days) EDC: 07/07/2017 Dates by First Scan: (28 weeks/5 days) EDC: 07/08/2017 Dates by Current Scan: (30 weeks/1 days) EDC: 07/05/2017 SURVEY IUP: Single PLACENTA: Posterior PREVIA: Low Lying KATHE: 10.6 cm Normal CERVICAL LENGTH (transabdominal: norm > 3.0cm): 3.7 cm BIOMETRY PRESENTATION: Vertex LIE: Longitudinal BPD: 7.8 cm 31 weeks / 3 days HC: 28.2 cm 31 weeks / 0 days AC: 25.2 cm 29 weeks / 2 days FL: 5.8 cm 30 weeks / 3 days ESTIMATED WEIGHT IN GRAMS: 1490 grams ESTIMATED WEIGHT IN LBS/OZ: 3 lbs. 5 oz. WEIGHT PERCENTAGE BASED ON ESTABLISHED DATES: 41.4% HC/AC: 1.1cm Normal FL/AC: 23.1cm Normal HEART RATE: 138 bpm RHYTHM: Normal MATERNAL WALL MEASUREMENT: 2.8 cm from skin to anterior uterine wall (if exam limited due to body hab itus). Single live IUP 30wks/1day with OLYA 07/05/2017. Placenta appears somewhat low lying. Technical limita tions due to position. IMPRESSION: There is satisfactory growth compared to the first exam of 12/07/2016. Posterior placenta. Amnio tic fluid is adequate. No placenta previa.
[2017-04-28 00:12] VITALS: PULSE 98; RESP 16; TEMP 98.4
--- NOTE | 2017-04-28 06:42 | P.MSEPDOC ---
Presenting Problems - Arrival Data Date of Arrival on Unit: 04/27/17 Time of Arrival on Unit: 20:21 Mode of Transport: Portable - Complaint OB-Reason for Admission/Chief Complaint: Vaginal Bleeding Comment: pt here for repeated vag bleeding. Has been bleeding off and on since 19 weeks and is followed by [facility]. Medical History - Information : 4 Para: 2 Term: 2 : 0 Abortions: Spontaneous or Elective: 1 Number of Living Children: 2 - Gestational Age Gestational Age by OLYA (wks/days): 30 Weeks and 6 Days - History Complications: GDM, Prior Comment: bleeding Review of Systems - Review of Systems Constitutional: No problems Breast: No problems ENT: No problems Cardiovascular: No problems Respiratory: No problems Gastrointestinal: No problems Genitourinary: No problems Musculoskeletal: No problems Neurological: No problems Skin: No problems Vital Signs - Temperature Temperature: 98.4 F Temperature Source: Oral - Pulse Right Pulse Rate: 98 Pulse Assessment Method: Automatic Cuff - Respirations Respiratory Rate: 16 Oxygen Delivery Method: Room Air Medical Screen Scoring (Pre) - Cervical Exam Dilation: Exam Deferred Effacement: Exam Deferred - Uterine Contractions Frequency: N/A - Maternal Vital Signs Maternal Temperature: N/A Signs of Preeclampsia: N/A Maternal Respirations: N/A - Pain Assessment Pain Location and Character: Abdomen Pain Scale Used: Numeric (1 - 10) Pain Intensity: 2 Pain Description: Cramping - Maternal Trauma Maternal Trauma: Ganga bleeding = 5 - Assessment Baseline FHR: 135 Heart Rate - NICHD Category: Category I (Normal) = 0 NST: Reactive - Total Score Total Score (Pre): 5 Physician Notification (Pre) - Physician Notified Physician Notified Date: 04/28/17 Physician Notified Time: 20:50 New Order Received: Yes - Notification Comment Comment: Dr Funez coming in to assess and arrange transfer Disposition - Disposition OB Disposition: Transfer to other dept./facility Transferred to:: [facility] Discharge Date: 04/27/17 Discharge Time: 22:45 I agree with the RN Medical Screening Exam: Yes Risk & Benefit of care provided described in d/c instruction: Yes Diagnosis: SPOTTING COMPLICATING , THIRD TRIMESTER
== END | disposition other institution (70) ==
LOC: FBPOP 20:21
PROVIDERS: ATTEND Obstetrics & Gynecology
DX: O46.93 Antepartum hemorrhage, unspecified, third trimester (principal); O24.419 Gestational diabetes mellitus in pregnancy, unspecified control; K21.9 Gastro-esophageal reflux disease without esophagitis; Z91.19 Patient's noncompliance with other medical treatment and regimen; Z98.890 Other specified postprocedural states; Z3A.30 30 weeks gestation of pregnancy
CPT/HCPCS: 59025; 76805; 84112; 85025; 85610; 85730; 96360; 99215

== ENCOUNTER 2017-06-20 11:45 | Inpatient (IN) | payer OTHER ==
[2017-06-20] MEDS ORDERED: CITRIC ACID-SODIUM CITRATE 15 ML CUP PO ONE (12:18)
[2017-06-20] MEDS ORDERED: ceFAZolin IN SWFI 2 GM/20 ML SYRINGE IVP ONE (12:18)
[2017-06-20] MEDS: LACTATED RINGERS 1,000 ML IV SCH ×2 (12:35→20:56)
[2017-06-20 12:42] LABS: Glucose,Whole Blood 86 mg/dL (75-99)
[2017-06-20] MEDS ORDERED: KETOROLAC 30 MG/ML 1 ML VIAL ONE (13:05)
[2017-06-20] MEDS ORDERED: ONDANSETRON 4 MG/2 ML VIAL ONE (13:05)
[2017-06-20] MEDS ORDERED: OXYTOCIN 10 UNIT/ML 1 ML VIAL ONE (13:05)
[2017-06-20] MEDS ORDERED: MORPHINE SULFATE (PF) 0.3 MG/0.3 ML SYR ONE (13:05)
[2017-06-20] MEDS ORDERED: NALBUPHINE 10 MG/ML AMPUL ONE (13:05)
[2017-06-20 13:21] LABS: Basophils % (A) 0 %; Eosinophils # (A) 0.1 k/uL (0-0.7); Eosinophils % (A) 1 %; HCT 28.8 % (34.0-46.0); HGB 9.1 gm/dL (11.4-16.0); Hypochromasia Moderate; Lymphocytes # (A) 1.1 k/uL (1.0-4.8); Lymphocytes % (A) 17 %; MCH 24.1 pg (25.0-35.0); MCHC 31.5 g/dL (31.0-37.0); MCV 76.5 fL (80.0-100.0); Mean Platelet Volume 9.3; Microcytosis Slight; Monocytes # (A) 0.3 k/uL (0-1.0); Monocytes % (A) 4 %; Neutrophils # (A) 4.7 k/uL (1.3-7.7); Neutrophils % (A) 75 %; Platelet Count 145 k/uL (150-450); Poikilocytosis Slight; RBC 3.77 m/uL (3.80-5.40); RDW 15.9 % (11.5-15.5); WBC 6.2 k/uL (3.8-10.6)
[2017-06-20] MEDS ORDERED: NALOXONE 0.4 MG/ML 1 ML VIAL IV PRN (13:47)
[2017-06-20] MEDS ORDERED: diphenhydrAMINE 25 MG CAP PO PRN (13:47)
[2017-06-20] MEDS ORDERED: diphenhydrAMINE 50 MG/ML 1 ML VIAL IVP PRN ×2 (13:47)
[2017-06-20] MEDS ORDERED: METOCLOPRAMIDE 5 MG/ML 2 ML VIAL IVP PRN (13:47)
[2017-06-20] MEDS ORDERED: ACETAMINOPHEN TAB 325 MG TAB PO PRN (13:47)
[2017-06-20] MEDS ORDERED: ONDANSETRON 4 MG/2 ML VIAL IVP PRN (13:47)
[2017-06-20] MEDS ORDERED: ZOLPIDEM 5 MG TAB PO PRN (13:47)
[2017-06-20] MEDS ORDERED: diphenhydrAMINE 50 MG CAP PO PRN (13:47)
--- NOTE | 2017-06-20 13:51 | P.HPOB ---
History of Present Illness H&P Date: 06/20/17 Chief Complaint: Intrauterine at term: Prior section: Spontaneous rupture Kiera is a 26-year-old 4 para 2 at 37 weeks 4 days gestation who arrives following spontaneous rupture membranes. Her course has been compensated by gestational diabetes as well as a positive antibody screen. She was followed and comanage with maternal- medicine. Her anti-E antibody remained too low to titer out and was not up problem through the . She was gestational diabetic but did not in this far as I can tell follow her sugar checks as well as she should and this was a similar situation from her last . Controlled medicine did manage her gestational diabetes and she was diet-controlled. This morning at approximately 8 AM she noted large amount of clear fluid coming from her vagina and she came into labor and delivery and spontaneous rupture membranes was diagnosed. On physical exam vital signs are stable and afebrile. Heart regular, lungs clear, extremities without pain. Osteopathic exam is unremarkable. Abdomen is gravid uterus noted. She was dilated to 1 cm and 50% effaced. heart tones in the 130s and reactive. Assessment intrauterine at term with prior section. Gestational diabetes diet controlled. Positive Rh antibody screen. Plan repeat low transverse section with bilateral tubal ligation for family planning Past Medical History Past Medical History: GERD/Reflux Additional Past Medical History / Comment(s): Gestational diabetes with two previous pregnancies. Positive anti-E antibody. History of Any Multi-Drug Resistant Organisms: None Reported Past Surgical History: Section Additional Past Surgical History / Comment(s): c/s x 2, bunionectomy, left foot surgery to remove wood injury Past Anesthesia/Blood Transfusion Reactions: No Reported Reaction Additional Past Anesthesia/Blood Transfusion Reaction / Comment(s): pos blood type, pos blood antibody. Smoking Status: Never smoker - Past Family History Mother Family Medical History: Cancer Additional Family Medical History / Comment(s): mother had cervical cancer Medications and Allergies Home Medications Medication Instructions Recorded Confirmed Type No Known Home Medications [No 04/20/17 04/27/17 History Known Home Medications] Allergies Allergy/AdvReac Type Severity Reaction Status Date / Time No Known Allergies Allergy Verified 04/27/17 20:58 Exam Osteopathic Statement: *. No significant issues noted on an osteopathic structural exam other than those noted in the History and Physical/Consult. - Vital Signs Vital signs: Vital Signs Temp Pulse Resp BP Pulse Ox 06/20/17 12:17 98.0 F 105 H 18 115/71 99 Intake and Output 06/19/17 06/20/17 06/20/17 22:59 06:59 14:59 Other: Weight 87.543 kg Results Result Diagrams: 06/20/17 12:35 Abnormal Lab Results - Last 24 Hours (Table) 06/20/17 Range/Units 12:35 RBC 3.77 L (3.80-5.40) m/uL Hgb 9.1 L (11.4-16.0) gm/dL Hct 28.8 L (34.0-46.0) % MCV 76.5 L (80.0-100.0) fL MCH 24.1 L (25.0-35.0) pg RDW 15.9 H (11.5-15.5) % Plt Count 145 L (150-450) k/uL
--- NOTE | 2017-06-20 13:56 | P.OP ---
Date of Procedure: 06/20/17 Preoperative Diagnosis: Intrauterine at term: Gestational diabetes: Prior section: Positive antibody screen: Family planning Postoperative Diagnosis: Same Procedure(s) Performed: Repeat low transverse section with bilateral partial salpingectomy Anesthesia: RIN Surgeon: Trevor Robles Towel Folder #1: Jacey Whitlock Estimated Blood Loss (ml): 500 IV fluids (ml): 900 Urine output (ml): 200 Pathology: other (Placenta) Condition: stable Disposition: floor Operative Findings: Female scores of 9 and 9 at one and 5 minutes respectfully weight was 7 lbs. 10 oz. Description of Procedure: Patient was taken to the operating suite where a spinal anesthetic was found be adequate. She was prepped and draped in the normal sterile fashion and placed in dorsal supine position with leftward tilt. Initially a Pfannenstiel skin incision was made and this incision was then carried through to the underlying layer of the fascia was second knife. Fascia was then nicked in the midline and this opening was extended laterally with Lorenzo scissors. Superior and inferior aspect of this incision were then grasped tented up and bluntly and sharply dissected off the rectus muscles. Rectus muscles were then divided the midline and blunt dissection through the peritoneum was made. This opening was then extended superiorly and inferiorly with good visualization of both bowel bladder. Bladder blade was then placed and the vesicouterine peritoneum was identified. It was entered sharply with Metzenbaum scissors and her bladder flap was digitally created. Knife was then used to incise the uterus. This incision was then entered completely with a hemostat and bluntly extended. It should be noted that there was a relatively large window in the lower uterine segment and the incision was therefore made approximately 2 cm above this window. Once uterus was completely open, head was atraumatically delivered and mouth and nares were bulb suctioned. A nuchal cord 2 was noted and was easily reduced. Shoulders were then delivered followed by the remainder the baby. Nursery personnel was present to assume care and the umbilical cord was clamped and cut in usual fashion. Placenta was then delivered intact and Pitocin was added to the IV. Uterus was then exteriorized cleared of clots and debris and closed in 1 layer with 0 Vicryl suture. Once excellent hemostasis was obtained attention was turned to the fallopian tubes. Hemostat was placed on both the right and left tube 2 cm from uterine cornu and a window was created in the mesosalpinx with Bovie cautery. 2 proximal and 2 distal 2-0 silk sutures were then placed with the intervening segments excised and tips cauterized. Once excellent hemostasis was obtained throughout this process uterus was reinserted into the abdomen following suctioning of blood and debris from the posterior cul -de-sac. Inspection of both right and left tube following abdominal placement reveals hemostasis. Should be noted that there was some bleeding on the left fallopian tube just prior to completion of the tubal and a third stitch was placed with hemostasis occurring following the stitch placement. Peritoneum was then identified and delineated with hemostats and the peritoneum was closed with 0 Vicryl suture in a running fashion. Fascial layer was then closed with 0 Vicryl suture in a running fashion one layer of 3-0 Vicryl was placed in deep subcuticular tissues to reapproximate the skin and close that space the skin was then closed with stephane. Sponge, lap, needle counts were all correct 2. Patient was then taken to the recovery room in stable and satisfactory condition.
[2017-06-20] MEDS ORDERED: LACTATED RINGERS 1,000 ML IV SCH (14:00)
[2017-06-20 15:37] VITALS: BMI 33.1
[2017-06-20] MEDS: KETOROLAC 30 MG/ML 1 ML VIAL IVP PRN (20:26)
[2017-06-20] MEDS: SENNOSIDES-DOCUSATE SODIUM 1 EACH TAB PO SCH (20:56)
[2017-06-21] MEDS: LACTATED RINGERS 1,000 ML IV SCH (06:17)
[2017-06-21] MEDS: SENNOSIDES-DOCUSATE SODIUM 1 EACH TAB PO SCH ×2 (07:56→19:36)
[2017-06-21] MEDS: KETOROLAC 30 MG/ML 1 ML VIAL IVP PRN (08:01)
--- NOTE | 2017-06-21 08:14 | P.PN ---
Progress Note - Text Date: 06/21/2017 Time: 06 58 The patient is status post section Vital signs stable VAS: 0-10 Patient has no complaints of pain. The patient incurred some minimal itching yesterday, this itching is now subsiding. Pain meds to be managed by service.
[2017-06-21 08:29] LABS: Anisocytosis Slight; Basophils % (A) 0 %; Eosinophils # (A) 0.1 k/uL (0-0.7); Eosinophils % (A) 1 %; HCT 23.9 % (34.0-46.0); Hypochromasia Moderate; Lymphocytes # (A) 0.8 k/uL (1.0-4.8); Lymphocytes % (A) 14 %; MCHC 31.5 g/dL (31.0-37.0); MCV 76.2 fL (80.0-100.0); Mean Platelet Volume 10.1; Microcytosis Slight; Monocytes # (A) 0.3 k/uL (0-1.0); Monocytes % (A) 5 %; Neutrophils # (A) 4.4 k/uL (1.3-7.7); Neutrophils % (A) 78 %; Platelet Count 127 k/uL (150-450); Poikilocytosis Slight; RBC 3.14 m/uL (3.80-5.40); RDW 16.3 % (11.5-15.5); WBC 5.6 k/uL (3.8-10.6)
[2017-06-21 08:30] LABS: HGB 7.6 gm/dL (11.4-16.0)
[2017-06-21] MEDS: IBUPROFEN 600 MG TAB PO PRN ×2 (14:33→21:44)
[2017-06-21] MEDS ORDERED: HYDROcodone/APAP 5-325MG 1 EACH TAB PO PRN (19:06)
[2017-06-21] MEDS ORDERED: FERROUS SULFATE 325 MG TAB PO STA (19:07)
[2017-06-21] MEDS: HYDROcodone/APAP 5-325MG 1 EACH TAB PO PRN ×2 (19:22→23:37)
[2017-06-22] MEDS: HYDROcodone/APAP 5-325MG 1 EACH TAB PO PRN ×3 (05:41→20:53)
[2017-06-22] MEDS: SENNOSIDES-DOCUSATE SODIUM 1 EACH TAB PO SCH ×2 (08:44→20:55)
[2017-06-22] MEDS: IBUPROFEN 600 MG TAB PO PRN ×3 (08:47→23:28)
--- NOTE | 2017-06-22 08:59 | P.PNOBGPC ---
Subjective - Subjective Principal diagnosis: Postoperative day 2 Interval history: Kiera is overall doing well. She is ambulating, voiding and she is tolerating her diet. It is noted that her hemoglobin fell from 9.1 7.6 due to surgery. She was already anemic and was known to be anemic prior to that was supposed to be taking iron but was not taking her iron at home. We will plan on restarting iron while she's in hospital and discharge her to home with the iron.. Otherwise she is overall doing well. Heart regular, lungs clear, extremities without pain. Abdomen is soft uterus is firm incision is otherwise clean dry and intact. She does note some burning at the level the incision but this shouldn't get better once the stephane are removed. Patient reports: Reports appetite normal, Reports voiding normally, Reports pain well controlled, Reports ambulating normally : doing well Objective - Vital Signs Latest vital signs: Vital Signs Temp Pulse Resp BP Pulse Ox 06/22/17 08:00 97.7 F 83 18 110/69 06/21/17 23:45 97.6 F 86 14 98/59 100 06/21/17 16:00 98.1 F 100 16 116/66 98 06/21/17 12:00 98.1 F 87 14 92/50 Intake and Output 06/21/17 06/22/17 06/22/17 22:59 06:59 14:59 Other: # Voids 2 - Exam Lungs: bilateral: normal Chest: Normal S1, Normal S2 Extremities: Present: normal Abdomen: Present: normal appearance, soft. Absent: distention, tenderness Incision: Present: normal, dry, intact Uterus: Present: normal, firm
--- NOTE | 2017-06-22 09:02 | P.PN ---
Progress Note - Text Progress Note Date: 06/21/17 Note dictated one day late. However Kiera was seen yesterday. Postop day 1: Kiera seen and evaluated overall doing well. She is ambulating and she is tolerating a clear liquid diet. Other than incisional pain she voices no other complaints. Vital signs are stable and afebrile. CBC at this time is pending. Heart regular, lungs clear, extremities without pain. Abdomen soft nontender positive bowel sounds are noted and her incision is intact. Assessment postop day 1. Plan continue current care.
[2017-06-22] MEDS ORDERED: FERROUS SULFATE 325 MG TAB PO SCH (12:30)
[2017-06-22 16:29] VITALS: RESP 18
[2017-06-23] MEDS: SENNOSIDES-DOCUSATE SODIUM 1 EACH TAB PO SCH (07:29)
[2017-06-23] MEDS: HYDROcodone/APAP 5-325MG 1 EACH TAB PO PRN (07:29)
[2017-06-23 08:07] VITALS: BP 98/58; PULSE 96; TEMP 97.8
--- NOTE | 2017-06-23 10:34 | P.DS ---
Providers Date of admission: 06/20/17 12:24 Expected date of discharge: 06/23/17 Attending physician: Trevor Robles Primary care physician: Stated None Hospital Course: Kiera is doing very well postop day 3. She is ambulating, voiding, and she is tolerating her diet. She voices no complaints and is requesting discharge home today. Her vital signs are stable and afebrile. Heart is regular, lungs are clear and her abdomen is soft. Her incision is clean dry and intact will plan to remove stephane today. Her extremities are without pain and minimal edema. Assessment postop day 3. Plan discharged home follow up with me in 1 week. Prescription for [place] was provided however she shouldn't be needed to take the prescription for more than approximately 3 days therefore no maps was run. Motrin prescription is also provided. Discharge instructions are thoroughly reviewed with her and she questions are answered for her prior to discharge and she is again stable for discharge this time. Patient Condition at Discharge: Good Plan - Discharge Summary New Discharge Prescriptions: New HYDROcodone/APAP 5-325MG [Hartland 5-325] 1 tab PO Q4HR PRN #30 tab PRN Reason: Pain Ibuprofen [Motrin] 600 mg PO Q6HR PRN #30 tab PRN Reason: Pain No Action Calcium Carbonate [Tums] 500 mg PO DIRECTED Acetaminophen [Tylenol] 500 mg PO Q4-6H PRN PRN Reason: Pain Scale 4 To 5 diphenhydrAMINE HCL [Diphenhydramine HCl] 25 mg PO HS Discharge Medication List Acetaminophen [Tylenol] 500 mg PO Q4-6H PRN 06/20/17 [History] Calcium Carbonate [Tums] 500 mg PO DIRECTED 06/20/17 [History] diphenhydrAMINE HCL [Diphenhydramine HCl] 25 mg PO HS 06/20/17 [History] HYDROcodone/APAP 5-325MG [[place] 5-325] 1 tab PO Q4HR PRN #30 tab 06/23/17 [Rx] Ibuprofen [Motrin] 600 mg PO Q6HR PRN #30 tab 06/23/17 [Rx] Follow up Appointment(s)/Referral(s): Trevor Robles DO [Doctor of Osteopathic Medicine] - 1 Week Activity/Diet/Wound Care/Special Instructions: No heavy lifting, limited stairs and driving and pelvic rest. If any high temperatures, heavy bleeding, or severe pain call my office. She is aware she is post-be taking iron tablets is home due to her anemia. And a reminder was again given that she should have no heavy lifting at home despite the fact that she has 2 young children that are going to want to be lifted up she needs to avoid.
[2017-06-23] MEDS: IBUPROFEN 600 MG TAB PO PRN (10:37)
== END 2017-06-23 13:30 | disposition home or self-care (01) | DRG 766 ==
LOC: FBPOP 11:45 → 4FBP 12:24
PROVIDERS: ADMIT Obstetrics & Gynecology; ATTEND Obstetrics & Gynecology
PROC: 0UB70ZZ Excision of Bilateral Fallopian Tubes, Open Approach (ICD-10-PCS; principal; 2017-06-20 13:05)
PROC: 10D00Z1 Extraction of Products of Conception, Low, Open Approach (ICD-10-PCS; principal; 2017-06-20 13:05)
DX: O34.211 Maternal care for low transverse scar from previous cesarean delivery (principal); O24.420 Gestational diabetes mellitus in childbirth, diet controlled; D64.9 Anemia, unspecified; K21.9 Gastro-esophageal reflux disease without esophagitis; O99.02 Anemia complicating childbirth; T45.4X6A Underdosing of iron and its compounds, initial encounter; O99.62 Diseases of the digestive system complicating childbirth; Z30.2 Encounter for sterilization; Z3A.37 37 weeks gestation of pregnancy; Z80.49 Family history of malignant neoplasm of other genital organs; Z91.128 Patient's intentional underdosing of medication regimen for other reason; Z37.0 Single live birth
CPT/HCPCS: 59025; 84112; 85025; 86850; 86870; 86880; 86900; 86901; 86902; 88302; 88307; 99213

== ENCOUNTER 2017-07-25 15:43 | Emergency (ER) | payer OTHER ==
[2017-07-25 16:00] VITALS: RESP 18
--- NOTE | 2017-07-25 16:16 | ED ---
Skin/Abscess/FB HPI - General Chief complaint: Skin/Abscess/Foreign Body Stated complaint: Post C-Sect Abscess Time Seen by Provider: 07/25/17 16:04 Source: patient Mode of arrival: ambulatory Limitations: no limitations - History of Present Illness Initial comments: This 26-year-old white female presents with a complaint of some swelling over the left side of her incision site. She had a approximately 5 weeks ago. She had some swelling and then drainage 3 weeks ago. She was placed on antibiotics at that time. It did improve but the swelling has increased over the past one week. This causes her a mild discomfort. There is no fevers, chills, deep abdominal pain, chest pain, shortness of breath, diarrhea, or constipation. She apparently called her OB/ GYNs office today and they sent her to the ER for further evaluation. - Related Data Previous Rx's Medication Instructions Recorded Ibuprofen [Motrin] 600 mg PO Q6HR PRN #30 tab 06/23/17 Allergies Allergy/AdvReac Type Severity Reaction Status Date / Time No Known Allergies Allergy Verified 07/25/17 16:06 Review of Systems ROS Statement: Those systems with pertinent positive or pertinent negative responses have been documented in the HPI. ROS Other: All systems not noted in ROS Statement are negative. Past Medical History Past Medical History: GERD/Reflux Additional Past Medical History / Comment(s): Gestational diabetes with two previous pregnancies. Positive anti-E antibody. History of Any Multi-Drug Resistant Organisms: None Reported Past Surgical History: Section Additional Past Surgical History / Comment(s): c/s x 2, bunionectomy, left foot surgery to remove wood injury Past Anesthesia/Blood Transfusion Reactions: No Reported Reaction Additional Past Anesthesia/Blood Transfusion Reaction / Comment(s): pos blood type, pos blood antibody. Past Psychological History: No Psychological Hx Reported Smoking Status: Never smoker Past Alcohol Use History: None Reported Past Drug Use History: None Reported - Past Family History Mother Family Medical History: Cancer Additional Family Medical History / Comment(s): mother had cervical cancer General Exam Limitations: no limitations GI/Abdominal exam: Present: soft, tenderness (There is mild tenderness and swelling noted of the left superior aspect of the horizontal inferior incision site. There is no erythema or drainage.). Absent: distended Neurological exam: Present: alert, oriented X3 Psychiatric exam: Present: normal affect, normal mood Course Vital Signs 07/25/17 15:58 Temperature 98.7 F Pulse Rate 93 Respiratory 18 Rate Blood Pressure 108/68 O2 Sat by Pulse 98 Oximetry Medical Decision Making - Medical Decision Making The patient was seen and examined. All diagnostics were reviewed. The white blood cell count is normal. The patient is mildly anemic. The ultrasound does show a likely resolving seroma. The case is discussed with Dr. Robles and he would like her to follow-up with him in the office. He does not feel as though antibiotics are indicated at this time that this should likely resolve with time. The patient was informed of this and leaves in no identifiable distress. She is instructed to utilize Tylenol or Motrin if needed for pain. - Lab Data Result diagrams: 07/25/17 16:49 Lab Results 07/25/17 Range/Units 16:49 WBC 5.1 (3.8-10.6) k/uL RBC 4.30 (3.80-5.40) m/uL Hgb 10.3 L (11.4-16.0) gm/dL Hct 32.3 L (34.0-46.0) % MCV 75.2 L (80.0-100.0) fL MCH 23.9 L (25.0-35.0) pg MCHC 31.8 (31.0-37.0) g/dL RDW 15.5 (11.5-15.5) % Plt Count 253 (150-450) k/uL Neutrophils % 60 % Lymphocytes % 29 % Monocytes % 5 % Eosinophils % 6 % Basophils % 0 % Neutrophils # 3.1 (1.3-7.7) k/uL Lymphocytes # 1.5 (1.0-4.8) k/uL Monocytes # 0.2 (0-1.0) k/uL Eosinophils # 0.3 (0-0.7) k/uL Basophils # 0.0 (0-0.2) k/uL Hypochromasia Moderate Microcytosis Slight Disposition Clinical Impression: Seroma after procedure Disposition: HOME SELF-CARE Condition: Good Additional Instructions: We saw you today for a postoperative seroma. This should resolve with time. Please follow-up with Dr. Robles closely. Utilize Tylenol and/or Motrin if needed for pain. Is patient prescribed a controlled substance at d/c from ED?: No Referrals: Trevor Rboles DO [Doctor of Osteopathic Medicine] - As Soon As Possible Mulugeta Stevenson MD [Primary Care Provider] - 07/28/17
[2017-07-25 17:02] LABS: Basophils % (A) 0 %; Eosinophils # (A) 0.3 k/uL (0-0.7); Eosinophils % (A) 6 %; HCT 32.3 % (34.0-46.0); HGB 10.3 gm/dL (11.4-16.0); Hypochromasia Moderate; Lymphocytes # (A) 1.5 k/uL (1.0-4.8); Lymphocytes % (A) 29 %; MCH 23.9 pg (25.0-35.0); MCHC 31.8 g/dL (31.0-37.0); MCV 75.2 fL (80.0-100.0); Mean Platelet Volume 7.7; Microcytosis Slight; Monocytes # (A) 0.2 k/uL (0-1.0); Monocytes % (A) 5 %; Neutrophils # (A) 3.1 k/uL (1.3-7.7); Neutrophils % (A) 60 %; Platelet Count 253 k/uL (150-450); RDW 15.5 % (11.5-15.5); WBC 5.1 k/uL (3.8-10.6)
--- NOTE | 2017-07-25 17:50 | US ---
EXAMINATION TYPE: US abdomen limited DATE OF EXAM: 07/25/2017 COMPARISON: NONE CLINICAL HISTORY: Pain and swelling over site. Lump and intermittent pain anterior to c-sec tion scar left lower abdomen. 5 weeks ago DESCRIPTION: The patient's area of concern (LLQ anterior to scar) was scanned with high-res olution multiplanar grayscale and color Doppler imaging techniques. Castle scale imaging in the area of interest shows a complex stellate-shaped hypoechoic focus measuring 2.4 x 3.2 x 1.3 cm. This focus is seen to be 1 cm deep to the skin surface. Color Doppler imaging of the focus fails to show hyperperfusion. IMPRESSION: Small stellate focus, likely resolving seroma.
[2017-07-25 18:22] VITALS: BP 105/65; PULSE 88; TEMP 98.1
== END 2017-07-25 18:19 | disposition home or self-care (01) ==
LOC: EC 15:43
DX: O90.2 Hematoma of obstetric wound (principal); O99.03 Anemia complicating the puerperium
CPT/HCPCS: 36415; 76705; 85025; 99283

== ENCOUNTER 2018-10-30 16:25 | Emergency (ER) | payer OTHER ==
[2018-10-30 16:43] VITALS: TEMP 98.5
--- NOTE | 2018-10-30 17:07 | ED ---
Abdominal Pain HPI - General Chief Complaint: Abdominal Pain Stated Complaint: abd pain, bleeding Time Seen by Provider: 10/30/18 16:52 Source: patient Mode of arrival: ambulatory Limitations: no limitations - History of Present Illness Initial Comments: Patient is a 27-year-old female presenting to emergency Department with complaints of lower left sided abdominal pain since this morning. Patient states the pain is worse when palpating this area however at rest the pain is very minimal. Patient states she can feel some pain with walking. Patient's last menstrual cycle was approximately 10 days ago however patient is reporting vaginal bleeding that started this morning as well. Patient admits to having a tubal ligation last year with her third . Patient states she is always had regular periods since this is abnormal for her. Patient denies any urinary complaints, fever, chills, nausea, vomiting, diarrhea. Patient admits to having softer stools yesterday. Patient has no other complaints at this time. Upon arrival to the ER, vital signs stable, afebrile. - Related Data Home Medications Medication Instructions Recorded Confirmed Acetaminophen [Tylenol] 325 mg PO Q4H 09/07/17 09/28/17 Previous Rx's Medication Instructions Recorded Ibuprofen [Motrin] 600 mg PO Q6HR PRN #30 tab 06/23/17 Cephalexin [Keflex] 500 mg PO BID 5 Days #10 cap 10/30/18 Allergies Allergy/AdvReac Type Severity Reaction Status Date / Time No Known Allergies Allergy Verified 10/30/18 16:44 Review of Systems ROS Statement: Those systems with pertinent positive or pertinent negative responses have been documented in the HPI. ROS Other: All systems not noted in ROS Statement are negative. Past Medical History Past Medical History: GERD/Reflux Additional Past Medical History / Comment(s): [facility], STATES BOTH SPOUSE AND CHILD HAVE HAD POS. MRSA INFECTIONS IN PAST, Gestational diabetes with two previous pregnancies. Positive anti-E antibody. History of Any Multi-Drug Resistant Organisms: None Reported, MRSA Date of last positivie culture/infection: 2017 MDRO Source:: mrsa Past Surgical History: Section Additional Past Surgical History / Comment(s): c/s x 2, bunionectomy, left foot surgery to remove wood injury Past Anesthesia/Blood Transfusion Reactions: No Reported Reaction Additional Past Anesthesia/Blood Transfusion Reaction / Comment(s): . Past Psychological History: No Psychological Hx Reported Smoking Status: Never smoker Past Alcohol Use History: None Reported Past Drug Use History: None Reported - Past Family History Mother Family Medical History: Cancer Additional Family Medical History / Comment(s): mother had cervical cancer General Exam - General Exam Comments Initial Comments: GENERAL: Well-appearing, well-nourished and in no acute distress. HEAD: Atraumatic, normocephalic. EYES: Pupils equal round and reactive to light, extraocular movements intact, sclera anicteric, conjunctiva are normal. ENT: TMs normal, nares patent, oropharynx clear without exudates. Moist mucous membranes. NECK: Normal range of motion, supple without lymphadenopathy or JVD. LUNGS: Breath sounds clear to auscultation bilaterally and equal. No wheezes rales or rhonchi. HEART: Regular rate and rhythm without murmurs, rubs or gallops. ABDOMEN: Mild pain with palpation the left lower quadrant, left groin area. Soft, normoactive bowel sounds. No guarding, no rebound. No masses appreciated. : Deferred EXTREMITIES: Normal range of motion, no pitting or edema. No clubbing or cyanosis. NEUROLOGICAL: Cranial nerves II through XII grossly intact. Normal speech, normal gait. PSYCH: Normal mood, normal affect. SKIN: Warm, Dry, normal turgor, no rashes or lesions noted. Limitations: no limitations Course Vital Signs 10/30/18 10/30/18 16:41 18:58 Temperature 98.5 F Pulse Rate 96 80 Respiratory 18 16 Rate Blood Pressure 117/71 112/78 O2 Sat by Pulse 99 99 Oximetry Medical Decision Making - Medical Decision Making Patient is a 27-year-old female presenting with left lower quadrant abdominal pain since this morning. Patient states the pain is worse with palpation. Patient is having very minimal pain at rest. Patient is also having vaginal bleeding that is too early for her menstrual cycle. Patient reports history of tubal ligation. On exam patient has very mild tenderness of the left lower quadrant, left groin area. Rest of exam is within normal limits. Vital signs are stable, afebrile. CBC, CMP are within normal limits. UA shows 1+ protein, large amount of blood, 34 wbc's. HCG is not detected. Urine will be sent for culture. Given patient's complaints patient will be started on Keflex for a UTI. Return parameters were discussed with the patient she verbalized understanding. Patient is stable for discharge at this time. Case discussed with Dr. Braun. - Lab Data Result diagrams: 10/30/18 17:15 10/30/18 17:15 Lab Results 10/30/18 10/30/18 10/30/18 Range/Units 17:15 17:15 17:15 WBC 7.8 (3.8-10.6) k/uL RBC 4.91 (3.80-5.40) m/uL Hgb 11.2 L (11.4-16.0) gm/dL Hct 35.7 (34.0-46.0) % MCV 72.8 L (80.0-100.0) fL MCH 22.8 L (25.0-35.0) pg MCHC 31.4 (31.0-37.0) g/dL RDW 15.7 H (11.5-15.5) % Plt Count 345 (150-450) k/uL Neutrophils % 71 % Lymphocytes % 19 % Monocytes % 4 % Eosinophils % 4 % Basophils % 0 % Neutrophils # 5.5 (1.3-7.7) k/uL Lymphocytes # 1.5 (1.0-4.8) k/uL Monocytes # 0.3 (0-1.0) k/uL Eosinophils # 0.3 (0-0.7) k/uL Basophils # 0.0 (0-0.2) k/uL Hypochromasia Moderate Microcytosis Moderate Sodium 141 (137-145) mmol/L Potassium 4.0 (3.5-5.1) mmol/L Chloride 106 (98-107) mmol/L Carbon Dioxide 25 (22-30) mmol/L Anion Gap 10 mmol/L BUN 11 (7-17) mg/dL Creatinine 0.79 (0.52-1.04) mg/dL Est GFR (CKD-EPI)AfAm >90 (>60 ml/min/1.73 sqM) Est GFR (CKD-EPI)NonAf >90 (>60 ml/min/1.73 sqM) Glucose 105 H (74-99) mg/dL Calcium 9.7 (8.4-10.2) mg/dL Urine Color Urine Appearance (Clear) Urine pH (5.0-8.0) Ur Specific Leslie (1.001-1.035) Urine Protein (Negative) Urine Glucose (UA) (Negative) Urine Ketones (Negative) Urine Blood (Negative) Urine Nitrite (Negative) Urine Bilirubin (Negative) Urine Urobilinogen (<2.0) mg/dL Ur Leukocyte Esterase (Negative) Urine RBC (0-5) /hpf Urine WBC (0-5) /hpf Urine Mucus (None) /hpf Urine HCG, Qual Not Detected (Not Detectd) 10/30/18 Range/Units 17:15 WBC (3.8-10.6) k/uL RBC (3.80-5.40) m/uL Hgb (11.4-16.0) gm/dL Hct (34.0-46.0) % MCV (80.0-100.0) fL MCH (25.0-35.0) pg MCHC (31.0-37.0) g/dL RDW (11.5-15.5) % Plt Count (150-450) k/uL Neutrophils % % Lymphocytes % % Monocytes % % Eosinophils % % Basophils % % Neutrophils # (1.3-7.7) k/uL Lymphocytes # (1.0-4.8) k/uL Monocytes # (0-1.0) k/uL Eosinophils # (0-0.7) k/uL Basophils # (0-0.2) k/uL Hypochromasia Microcytosis Sodium (137-145) mmol/L Potassium (3.5-5.1) mmol/L Chloride (98-107) mmol/L Carbon Dioxide (22-30) mmol/L Anion Gap mmol/L BUN (7-17) mg/dL Creatinine (0.52-1.04) mg/dL Est GFR (CKD-EPI)AfAm (>60 ml/min/1.73 sqM) Est GFR (CKD-EPI)NonAf (>60 ml/min/1.73 sqM) Glucose (74-99) mg/dL Calcium (8.4-10.2) mg/dL Urine Color Red Urine Appearance Cloudy H (Clear) Urine pH 5.5 (5.0-8.0) Ur Specific Leslie 1.031 (1.001-1.035) Urine Protein 1+ H (Negative) Urine Glucose (UA) Negative (Negative) Urine Ketones Trace H (Negative) Urine Blood Large H (Negative) Urine Nitrite Negative (Negative) Urine Bilirubin Negative (Negative) Urine Urobilinogen <2.0 (<2.0) mg/dL Ur Leukocyte Esterase Small H (Negative) Urine RBC >182 H (0-5) /hpf Urine WBC 34 H (0-5) /hpf Urine Mucus Many H (None) /hpf Urine HCG, Qual (Not Detectd) Disposition Clinical Impression: UTI (urinary tract infection), Abdominal pain Disposition: HOME SELF-CARE Condition: Stable Instructions (If sedation given, give patient instructions): Urinary Tract Infection in Women (ED) Additional Instructions: Please return to the Emergency Department if symptoms worsen or any other concerns. Follow up with GROUP CHIEF OPERATOR if symptoms persist. Prescriptions: Cephalexin [Keflex] 500 mg PO BID 5 Days #10 cap Is patient prescribed a controlled substance at d/c from ED?: No Referrals: Mulugeta Stevenson MD [Primary Care Provider] - 1-2 days
[2018-10-30 17:37] LABS: Basophils % (A) 0 %; Eosinophils # (A) 0.3 k/uL (0-0.7); Eosinophils % (A) 4 %; HCT 35.7 % (34.0-46.0); HGB 11.2 gm/dL (11.4-16.0); Hypochromasia Moderate; Lymphocytes # (A) 1.5 k/uL (1.0-4.8); Lymphocytes % (A) 19 %; MCH 22.8 pg (25.0-35.0); MCHC 31.4 g/dL (31.0-37.0); MCV 72.8 fL (80.0-100.0); Mean Platelet Volume 6.8; Microcytosis Moderate; Monocytes # (A) 0.3 k/uL (0-1.0); Monocytes % (A) 4 %; Neutrophils # (A) 5.5 k/uL (1.3-7.7); Neutrophils % (A) 71 %; Platelet Count 345 k/uL (150-450); RBC 4.91 m/uL (3.80-5.40); RDW 15.7 % (11.5-15.5); WBC 7.8 k/uL (3.8-10.6)
[2018-10-30 17:44] LABS: African American GFR (CKD) >90 (>60 ml/min/1.73 sqM); Anion Gap 10 mmol/L; Blood Urea Nitrogen 11 mg/dL (7-17); Calcium 9.7 mg/dL (8.4-10.2); Carbon Dioxide 25 mmol/L (22-30); Chloride 106 mmol/L (98-107); Glucose 105 mg/dL (74-99); Non-African American GFR(CKD) >90 (>60 ml/min/1.73 sqM); Sodium 141 mmol/L (137-145)
[2018-10-30 17:46] LABS: Appearance,Urine Cloudy (Clear); Bilirubin,Urine Negative (Negative); Blood,Urine Large (Negative); Color,Urine Red; Glucose,Urine (UA) Negative (Negative); Ketones,Urine Trace (Negative); Leukocyte Esterase,Urine Small (Negative); Mucus,Urine Many /hpf; Nitrite,Urine Negative (Negative); PH, Urine 5.5 (5.0-8.0); Protein,Urine 1+ (Negative); RBC,Urine >182 /hpf (0-5); Specific Gravity,Urine 1.031 (1.001-1.035); Urobilinogen,Urine <2.0 mg/dL (<2.0); WBC,Urine 34 /hpf (0-5)
[2018-10-30 19:00] VITALS: BP 112/78; PULSE 80; RESP 16
== END 2018-10-30 19:00 | disposition home or self-care (01) ==
LOC: EC 16:25
DX: N39.0 Urinary tract infection, site not specified (principal); N93.9 Abnormal uterine and vaginal bleeding, unspecified; Z79.891 Long term (current) use of opiate analgesic; Z86.14 Personal history of Methicillin resistant Staphylococcus aureus infection; Z98.51 Tubal ligation status; Z87.19 Personal history of other diseases of the digestive system; Z80.49 Family history of malignant neoplasm of other genital organs
CPT/HCPCS: 36415; 80048; 81001; 81025; 85025; 87086; 99284

== ENCOUNTER → 2019-10-18 | Outpatient (CLI) | payer OTHER | END | disposition home or self-care (01) | LOC: LABWHC1 09:53 | PROVIDERS: ATTEND Family Medicine | DX: Z03.818 Encounter for observation for suspected exposure to other biological agents ruled out (principal) | CPT/HCPCS: U0003; C9803 ==

== ENCOUNTER → 2020-07-11 | Outpatient (CLI) | payer BC, OTHER | END | disposition home or self-care (01) | LOC: LABWHC1 13:42 | PROVIDERS: ATTEND Emergency Medicine | DX: U07.1 COVID-19 (principal) | CPT/HCPCS: U0003; C9803; U0005 ==

== ENCOUNTER → 2020-07-21 | Outpatient (CLI) | payer BC | END | disposition home or self-care (01) | LOC: LABWHC1 15:39 | PROVIDERS: ATTEND Emergency Medicine | DX: U07.1 COVID-19 (principal) | CPT/HCPCS: U0003; C9803 ==

== ENCOUNTER → 2020-08-01 | Outpatient (CLI) | payer BC | END | disposition home or self-care (01) | LOC: LABWHC1 16:00 | PROVIDERS: ATTEND Emergency Medicine | DX: Z20.822 Contact with and (suspected) exposure to COVID-19 (principal) | CPT/HCPCS: U0003; C9803 ==

== ENCOUNTER → 2020-08-06 | Outpatient (CLI) | payer BC | END | disposition home or self-care (01) | LOC: LABWHC1 15:44 | PROVIDERS: ATTEND Emergency Medicine | DX: Z20.822 Contact with and (suspected) exposure to COVID-19 (principal) | CPT/HCPCS: U0003; C9803; U0005 ==

== ENCOUNTER → 2021-09-28 | Outpatient (CLI) | payer OTHER ==
[2021-09-28 18:42] LABS: Basophils # (A) 0.04 X 10*3/uL (0.00-0.10); Basophils % (A) 0.6 %; Eosinophils # (A) 0.21 X 10*3/uL (0.04-0.35); Eosinophils % (A) 3.3 %; HCT 43.8 % (37.2-46.3); HGB 14.1 g/dL (12.0-15.0); Immature Grans, Automated 0.5 %; Lymphocytes # (A) 1.71 X 10*3/uL (0.90-5.00); Lymphocytes % (A) 26.6 %; MCH 29.3 pg (27.0-32.0); MCHC 32.2 g/dL (32.0-37.0); MCV 90.9 fL (80.0-97.0); Monocytes # (A) 0.39 X 10*3/uL (0.20-1.00); Monocytes % (A) 6.1 %; NRBC Per 100 WBC 0 /100 WBCS (0.0-0.0); Neutrophils # (A) 4.04 X 10*3/uL (1.80-7.70); Neutrophils % (A) 62.9 %; Platelet Count 242 X 10*3/uL (140-440); RBC 4.82 X 10*6/uL (4.10-5.20); RDW 15.4 % (11.5-14.5); WBC 6.42 X 10*3/uL (4.50-10.00)
== END | disposition home or self-care (01) ==
LOC: LABPAT 12:19
PROVIDERS: ATTEND Obstetrics & Gynecology
DX: Z01.812 Encounter for preprocedural laboratory examination (principal); N92.0 Excessive and frequent menstruation with regular cycle
CPT/HCPCS: 36415; 85025

== ENCOUNTER 2021-10-13 06:08 | Day surgery (SDC) | payer BC, OTHER ==
[~2021-10-13 06:08] MED LIST changes: +DEXAMETHASONE SOD PHOSPHATE 4 MG/ML 1 ML VIAL IV ONE; +LIDOCAINE 1% (10MG/ML) FOR IV START INTRADERMA PRN; +MIDAZOLAM 2 MG/2 ML VIAL IV PRN; +ONDANSETRON 4 MG/2 ML VIAL IVP ONE; +Pre Op ABX Message 1 EACH MISC MISCELLANE ONE
[2021-10-13] MEDS ORDERED: HYDROmorphone 0.5 MG/0.5 ML SYRINGE IVP PRN (07:00)
[2021-10-13] MEDS ORDERED: KETOROLAC 15 MG/ML 1 ML VIAL ONE (07:43)
[2021-10-13] MEDS ORDERED: PROPOFOL 10 MG/ML 20 ML VIAL IV ONE (07:43)
[2021-10-13] MEDS ORDERED: MIDAZOLAM 2 MG/2 ML VIAL ONE (07:43)
[2021-10-13] MEDS ORDERED: fentaNYL (PF) 50 MCG/ML 2 ML AMP ONE (07:43)
[2021-10-13] MEDS ORDERED: LIDOCAINE 2% INJ 20 MG/ML (2 ML VIAL) ONE (07:43)
[2021-10-13] MEDS ORDERED: SILVER NITRATE APPLICATOR 1 EACH STICK..EA. TOPICAL ONE (08:00)
[2021-10-13] MEDS ORDERED: SODIUM CHLORIDE 0.9% 100 ML with ceFAZolin 2 GM IV ONE ×2 (08:10)
--- NOTE | 2021-10-13 08:18 | P.OP ---
Date of Procedure: 10/13/21 Preoperative Diagnosis: Menorrhagia Postoperative Diagnosis: Same, uterine perforation Procedure(s) Performed: Hysteroscopy Anesthesia: RIN Surgeon: Paula Robertson Estimated Blood Loss (ml): 10 IV fluids (ml): 400 Urine output (ml): 300 Pathology: none sent Condition: stable Disposition: PACU Operative Findings: In introduced in the hysteroscope, a uterine perforation is noted at the uterine fundus. There is no uterine bleeding. Procedure terminated. Description of Procedure: Patient is brought to the operating suite where a general anesthetic is administered without difficulty. She's placed in the dorsal lithotomy position. The cervix, vagina, perineal bodies are all prepped and draped in usual sterile fashion. The appropriate timeout is performed to assure proper patient and procedural identification. Urine hCG is negative. Examination under anesthesia reveals a bulky uterus, anteverted and anteflexed, small and mobile. Adnexa are negative bilaterally. Bladder is drained for approximately 300 mL of clear yellow urine. Weighted speculum was placed into the vagina. Anterior lip of the cervix is grasped with a double-tooth tenaculum. Uterus sounds to a depth of 9 cm in the anteverted position. The cervix is then gently and systematically dilated using Hanks dilators to the hysteroscope was introduced and fluid is infused. There was a uterine perforation noted at the uterine fundus, it is hemostatically intact with no bleeding noted. For this reason the procedure is terminated. All instrumentation is removed. The anterior lip of the cervix upon removing the double-tooth tenaculum also has small perforations, these are cauterized with nitrous stick for excellent hemostasis. Overall the cervix and uterus are very boggy and engorged. All sponge and instrument counts are correct. Patient is brought back to the recovery room in very good condition. She has stable vital signs including a blood pressure of 127/62, pulse 71. She is given Toradol prior to leaving the operative suite. She will follow-up with me in the office in 2 weeks. I would consider allowing the uterus to heal, then repeating the procedure in 2-3 cycles when the patient is not on her menses. This will be explained to the patient in detail.
[2021-10-13 08:21] VITALS: TEMP 97.2
[2021-10-13 09:57] VITALS: BP 122/74; PULSE 79; RESP 18
== END 2021-10-13 10:17 | disposition home or self-care (01) ==
LOC: OR 06:08
PROVIDERS: ATTEND Obstetrics & Gynecology
DX: S37.69XA Other injury of uterus, initial encounter (principal); Z53.09 Procedure and treatment not carried out because of other contraindication; X58.XXXA Exposure to other specified factors, initial encounter; K21.9 Gastro-esophageal reflux disease without esophagitis; J45.909 Unspecified asthma, uncomplicated; Z80.49 Family history of malignant neoplasm of other genital organs; Z79.899 Other long term (current) drug therapy; Z90.81 Acquired absence of spleen; Z80.3 Family history of malignant neoplasm of breast; Z80.41 Family history of malignant neoplasm of ovary; D64.9 Anemia, unspecified
CPT/HCPCS: 81025; 58558; J2250; J1100; J0690; J2405; J3010; J1885; J2704; J1170; J2001

== ENCOUNTER 2023-01-10 14:42 | Emergency (ER) | payer OTHER ==
--- NOTE | 2023-01-10 15:52 | XR ---
EXAMINATION TYPE: XR chest 2V DATE OF EXAM: 01/10/2023 COMPARISON: NONE TECHNIQUE: PA and lateral views submitted. HISTORY: Tachycardia and cough FINDINGS: The lungs are clear and there is no pneumothorax, pleural effusion, or focal pneumonia. Heart size normal and no overt failure. Osseous structures demonstrate hypertrophic and degenerative changes of the spine. IMPRESSION: 1. No acute process.
--- NOTE | 2023-01-10 16:02 | ED ---
General Adult HPI - General Chief complaint: Upper Respiratory Infection Stated complaint: ENT-elevated pulse Time Seen by Provider: 01/10/23 16:00 Source: patient, RN notes reviewed Mode of arrival: ambulatory Limitations: no limitations - History of Present Illness Initial comments: 32-year-old female presents to the emergency department complaining of cough and congestion 1 month. She reports that her cough is worse at night. She has been taking cough syrup and an albuterol inhaler which seems to help. She reports that she was taking these medications at night because she does not like going to make her feel. Patient also reports that she has been on 2 courses of antibiotics and steroids. Patient states that she was given another dose of steroids IM today at urgent care. Patient was seen at urgent care today and was sent to the emergency department for further evaluation for her symptoms of cough and tachycardia. She does not have any significant past medical history. Denies contraceptives, recent surgery, chest pain. - Related Data Home Medications Medication Instructions Recorded Confirmed Acetaminophen [Tylenol] 325 mg PO Q4H PRN 09/07/17 10/13/21 Albuterol Sulfate [Proair Hfa] 1 - 2 puff INHALATION Q6HR PRN 10/13/21 10/13/21 Previous Rx's Medication Instructions Recorded Benzonatate [Tessalon Perles] 100 mg PO TID PRN #30 capsule 01/10/23 Fluticasone Nasal [place] [Flonase 2 spray EA NOSTRIL DAILY #16 gm 01/10/23 Nasal [place]] Allergies Allergy/AdvReac Type Severity Reaction Status Date / Time No Known Allergies Allergy Verified 01/10/23 14:55 Review of Systems ROS Statement: Those systems with pertinent positive or pertinent negative responses have been documented in the HPI. ROS Other: All systems not noted in ROS Statement are negative. Past Medical History Past Medical History: GERD/Reflux Additional Past Medical History / Comment(s): CURRENT WOUND AT [facility], STATES BOTH SPOUSE AND CHILD HAVE HAD POS. MRSA INFECTIONS IN PAST, Gestational diabetes with two previous pregnancies. Positive anti-E antibody. History of Any Multi-Drug Resistant Organisms: None Reported, MRSA Date of last positivie culture/infection: 2017 MDRO Source:: mrsa Past Surgical History: Section, Orthopedic Surgery Additional Past Surgical History / Comment(s): left fooot surgery Past Anesthesia/Blood Transfusion Reactions: No Reported Reaction Additional Past Anesthesia/Blood Transfusion Reaction / Comment(s): . Past Psychological History: No Psychological Hx Reported Smoking Status: Never smoker Past Alcohol Use History: None Reported Past Drug Use History: None Reported - Past Family History Mother Family Medical History: Cancer Additional Family Medical History / Comment(s): mother had cervical cancer General Exam Limitations: no limitations General appearance: alert, in no apparent distress Head exam: Present: atraumatic, normocephalic, normal inspection Eye exam: Present: normal appearance, PERRL, EOMI. Absent: scleral icterus, conjunctival injection, periorbital swelling ENT exam: Present: normal exam, mucous membranes moist Neck exam: Present: normal inspection. Absent: tenderness, meningismus, lymphadenopathy Respiratory exam: Present: normal lung sounds bilaterally. Absent: respiratory distress, wheezes, rales, rhonchi, stridor Cardiovascular Exam: Present: normal rhythm, tachycardia, normal heart sounds. Absent: systolic murmur, diastolic murmur, rubs, gallop, clicks GI/Abdominal exam: Present: soft, normal bowel sounds. Absent: distended, tenderness, guarding, rebound, rigid Extremities exam: Present: normal inspection, full ROM, normal capillary refill. Absent: tenderness, pedal edema, joint swelling, calf tenderness Back exam: Present: normal inspection Neurological exam: Present: alert, oriented X3 Psychiatric exam: Present: normal affect, normal mood Skin exam: Present: warm, dry, intact, normal color. Absent: rash Course Vital Signs 01/10/23 01/10/23 01/10/23 14:52 18:19 19:52 Temperature 98.5 F 98 F Pulse Rate 111 H 107 H 94 Respiratory 20 18 18 Rate Blood Pressure 133/82 122/84 O2 Sat by Pulse 98 97 97 Oximetry Medical Decision Making - Medical Decision Making Was pt. sent in by a medical professional or institution (, PA, TILE AND MARBLE INSTALLER, urgent care, hospital, or fci...) When possible be specific @ -Urgent care Did you speak to anyone other than the patient for history (EMS, parent, family, police, friend...)? What history was obtained from this source @ -No Did you review nursing and triage notes (agree or disagree)? Why? @ -I reviewed and agree with nursing and triage notes Were old charts reviewed (outside hosp., previous admission, EMS record, old EKG, old radiological studies, urgent care reports/EKG's, fci records)? Report findings @ -No old charts were reviewed Differential Diagnosis (chest pain, altered mental status, abdominal pain women, abdominal pain men, vaginal bleeding, weakness, fever, dyspnea, syncope, headache, dizziness, GI bleed, back pain, seizure, CVA, palpatations, mental health, musculoskeletal)? @ -not applicable EKG interpreted by me (3pts min.). @ -EKG at 1714 shows sinus rhythm rate 92, [place] 142, QRS 89, QTQTc is [id number] X-rays interpreted by me (1pt min.). @ -None done CT interpreted by me (1pt min.). @ -None done U/S interpreted by me (1pt. min.). @ -None done What testing was considered but not performed or refused? (CT, X-rays, U/S, labs)? Why? @ -None What meds were considered but not given or refused? Why? @ -None Did you discuss the management of the patient with other professionals (professionals i.e. , PA, TILE AND MARBLE INSTALLER, lab, RT, psych nurse, social security benefits interviewer, paid internship, teacher, state patrol officer, patient case coordinator)? Give summary @ -No Was smoking cessation discussed for >3mins.? @ -No Was critical care preformed (if so, how long)? @ -No Were there social determinants of health that impacted care today? How? (Homelessness, low income, unemployed, alcoholism, drug addiction, transportation, low edu. Level, literacy, decrease access to med. care, long-term, rehab)? @ -No Was there de-escalation of care discussed even if they declined (Discuss DNR or withdrawal of care, Hospice)? DNR status @ -No What co-morbidities impacted this encounter? (DM, HTN, Smoking, COPD, CAD, Cancer, CVA, ARF, Chemo, Hep., AIDS, mental health diagnosis, sleep apnea, morbid obesity)? @ -None Was patient admitted / discharged? Hospital course, mention meds given and route, prescriptions, significant lab abnormalities, going to OR and other pe rtinent info. @ -discharged, Patient presented to the emergency department for chief complaint of cough, congestion, tachycardia. She was sent in by urgent care. EKG shows sinus rhythm rate 92. Labs obtained shows CBC, CMP WNL, ddimer 0.26. covid, influenza, rsv negative. Chest xr shows no acute process. Sent prescription for flonase and Tessalon pearls. Patient advised on findings and will be discharged home. Patient stable at time of discharge. Case discussed with Dr. Castano. Undiagnosed new problem with uncertain prognosis? @ -No Drug Therapy requiring intensive monitoring for toxicity (Heparin, Nitro, Insulin, Cardizem)? @ -No Were any procedures done? @ -No Diagnosis/symptom? @ -allergic rhinitis Acute, or Chronic, or Acute on Chronic? @ -acute Uncomplicated (without systemic symptoms) or Complicated (systemic symptoms)? @ -uncomplicated Side effects of treatment? @ -No Exacerbation, Progression, or Severe Exacerbation? @ -No Poses a threat to life or bodily function? How? (Chest pain, [place], [place], pneumonia, PE, COPD, DKA, ARF, appy, cholecystitis, CVA, Diverticulitis, Homicidal, Suicidal, threat to staff... and all critical care pts) @ -No - Lab Data Result diagrams: 01/10/23 17:16 01/10/23 17:16 Lab Results 01/10/23 01/10/23 01/10/23 Range/Units 14:57 17:16 17:16 WBC 8.3 (3.8-10.6) k/uL RBC 4.94 (3.80-5.40) m/uL Hgb 13.2 (11.4-16.0) gm/dL Hct 40.4 (34.0-46.0) % MCV 81.8 (80.0-100.0) fL MCH 26.6 (25.0-35.0) pg MCHC 32.5 (31.0-37.0) g/dL RDW 14.7 (11.5-15.5) % Plt Count 316 (150-450) k/uL MPV 7.6 Neutrophils % 84 % Lymphocytes % 12 % Monocytes % 2 % Eosinophils % 1 % Basophils % 0 % Neutrophils # 6.9 (1.3-7.7) k/uL Lymphocytes # 1.0 (1.0-4.8) k/uL Monocytes # 0.2 (0-1.0) k/uL Eosinophils # 0.1 (0-0.7) k/uL Basophils # 0.0 (0-0.2) k/uL Hypochromasia Slight D-Dimer 0.26 (<0.60) mg/L FEU Sodium (137-145) mmol/L Potassium (3.5-5.1) mmol/L Chloride (98-107) mmol/L Carbon Dioxide (22-30) mmol/L Anion Gap mmol/L BUN (7-17) mg/dL Creatinine (0.52-1.04) mg/dL Est GFR (CKD-EPI)AfAm (>60 ml/min/1.73 sqM) Est GFR (CKD-EPI)NonAf (>60 ml/min/1.73 sqM) Glucose (74-99) mg/dL Calcium (8.4-10.2) mg/dL Total Bilirubin (0.2-1.3) mg/dL AST (14-36) U/L ALT (4-34) U/L Alkaline Phosphatase (38-126) U/L Total Protein (6.3-8.2) g/dL Albumin (3.5-5.0) g/dL Influenza Type A (PCR) Not Detected (Not Detectd) Influenza Type B (PCR) Not Detected (Not Detectd) RSV (PCR) Not Detected (Not Detectd) SARS-CoV-2 (PCR) Not Detected (Not Detectd) 01/10/23 Range/Units 17:16 WBC (3.8-10.6) k/uL RBC (3.80-5.40) m/uL Hgb (11.4-16.0) gm/dL Hct (34.0-46.0) % MCV (80.0-100.0) fL MCH (25.0-35.0) pg MCHC (31.0-37.0) g/dL RDW (11.5-15.5) % Plt Count (150-450) k/uL MPV Neutrophils % % Lymphocytes % % Monocytes % % Eosinophils % % Basophils % % Neutrophils # (1.3-7.7) k/uL Lymphocytes # (1.0-4.8) k/uL Monocytes # (0-1.0) k/uL Eosinophils # (0-0.7) k/uL Basophils # (0-0.2) k/uL Hypochromasia D-Dimer (<0.60) mg/L FEU Sodium 141 (137-145) mmol/L Potassium 4.4 (3.5-5.1) mmol/L Chloride 106 (98-107) mmol/L Carbon Dioxide 24 (22-30) mmol/L Anion Gap 11 mmol/L BUN 9 (7-17) mg/dL Creatinine 0.75 (0.52-1.04) mg/dL Est GFR (CKD-EPI)AfAm >90 (>60 ml/min/1.73 sqM) Est GFR (CKD-EPI)NonAf >90 (>60 ml/min/1.73 sqM) Glucose 107 H (74-99) mg/dL Calcium 9.9 (8.4-10.2) mg/dL Total Bilirubin 0.7 (0.2-1.3) mg/dL AST 20 (14-36) U/L ALT 20 (4-34) U/L Alkaline Phosphatase 85 (38-126) U/L Total Protein 7.8 (6.3-8.2) g/dL Albumin 4.6 (3.5-5.0) g/dL Influenza Type A (PCR) (Not Detectd) Influenza Type B (PCR) (Not Detectd) RSV (PCR) (Not Detectd) SARS-CoV-2 (PCR) (Not Detectd) Disposition Clinical Impression: Allergic rhinitis Disposition: HOME SELF-CARE Condition: Stable Instructions (If sedation given, give patient instructions): Allergic Rhinitis (ED) Additional Instructions: Please follow up with your primary care provider. Return to the emergency department for new or worsening symptoms. Prescriptions: Fluticasone Nasal [place] [Flonase Nasal [place]] 2 spray EA NOSTRIL DAILY #16 gm Benzonatate [Tessalon Perles] 100 mg PO TID PRN #30 capsule PRN Reason: Cough Is patient prescribed a controlled substance at d/c from ED?: No Referrals: None,Stated [REFERRING] - 1-2 days
[2023-01-10 17:50] LABS: Basophils % (A) 0 %; Eosinophils # (A) 0.1 k/uL (0-0.7); Eosinophils % (A) 1 %; HCT 40.4 % (34.0-46.0); HGB 13.2 gm/dL (11.4-16.0); Hypochromasia Slight; Lymphocytes % (A) 12 %; MCH 26.6 pg (25.0-35.0); MCHC 32.5 g/dL (31.0-37.0); MCV 81.8 fL (80.0-100.0); Mean Platelet Volume 7.6; Monocytes # (A) 0.2 k/uL (0-1.0); Monocytes % (A) 2 %; Neutrophils # (A) 6.9 k/uL (1.3-7.7); Neutrophils % (A) 84 %; Platelet Count 316 k/uL (150-450); RBC 4.94 m/uL (3.80-5.40); RDW 14.7 % (11.5-15.5); WBC 8.3 k/uL (3.8-10.6)
[2023-01-10 18:11] LABS: ALT 20 U/L (4-34); AST 20 U/L (14-36); African American GFR (CKD) >90 (>60 ml/min/1.73 sqM); Albumin 4.6 g/dL (3.5-5.0); Alkaline Phosphatase 85 U/L (38-126); Anion Gap 11 mmol/L; Blood Urea Nitrogen 9 mg/dL (7-17); Calcium 9.9 mg/dL (8.4-10.2); Carbon Dioxide 24 mmol/L (22-30); Chloride 106 mmol/L (98-107); Glucose 107 mg/dL (74-99); Non-African American GFR(CKD) >90 (>60 ml/min/1.73 sqM); Potassium 4.4 mmol/L (3.5-5.1); Sodium 141 mmol/L (137-145); Total Bilirubin 0.7 mg/dL (0.2-1.3); Total Protein 7.8 g/dL (6.3-8.2)
[2023-01-10 18:24] VITALS: RESP 18
[2023-01-10 20:06] VITALS: BP 122/84; PULSE 94; TEMP 98
== END 2023-01-10 20:00 | disposition home or self-care (01) ==
LOC: EC 14:42
DX: J30.9 Allergic rhinitis, unspecified (principal); Z20.822 Contact with and (suspected) exposure to COVID-19
CPT/HCPCS: 36415; 71046; 80053; 85025; 85379; 87636; 99284

== ENCOUNTER → 2023-09-23 | Outpatient (CLI) | payer OTHER ==
--- NOTE | 2023-09-25 10:05 | US ---
EXAMINATION TYPE: US kidneys/renal and bladder DATE OF EXAM: 09/23/2023 COMPARISON: NONE CLINICAL INDICATION: Female, 32 years old with history of R10.9 LEFT FLANK PAIN; left flank "tingly" feeling EXAM MEASUREMENTS: Right Kidney: 8.9 x 4.9 x 4.2 cm Left Kidney: 11.2 x 5.0 x 4.5 cm Right Kidney: No hydronephrosis or masses seen Left Kidney: No hydronephrosis or masses seen Bladder: wnl Bilateral Jets seen: Yes There is no evidence for hydronephrosis at this point in time. No nephrolithiasis is seen. No amelia s are identified. The urinary bladder is anechoic. Bilateral ureteral jets are seen. IMPRESSION: Unremarkable study.
== END | disposition home or self-care (01) ==
LOC: RADUSWWP 14:43
PROVIDERS: ATTEND Family Medicine
DX: R10.9 Unspecified abdominal pain (principal)
CPT/HCPCS: 76770

== ENCOUNTER 2024-04-10 13:13 | Emergency (ER) | payer OTHER ==
[2024-04-10 13:16] VITALS: TEMP 97.8
--- NOTE | 2024-04-10 13:25 | ED ---
Chest Pain HPI - General Source: patient, RN notes reviewed Mode of arrival: ambulatory Limitations: no limitations <Ana Perez - Last Filed: 04/10/24 13:23> - General Source: patient, RN notes reviewed, old records reviewed Mode of arrival: ambulatory Limitations: no limitations - History of Present Illness MD Complaint: chest pain, other (Right-sided chest pain shoulder pain) -: hour(s) Onset: during rest, awoke with symptoms Pain Location: right chest Pain Radiation: RUE, back Severity: moderate Severity scale (1-10): 4 Quality: sharp Consistency: intermittent Improves With: nothing Worsens With: nothing Other Symptoms: cough Treatments Prior to Arrival: none <Víctor Castano - Last Filed: 04/15/24 19:15> - General Chief Complaint: Chest Pain Stated Complaint: Chest pain Time Seen by Provider: 04/10/24 13:24 - History of Present Illness Initial Comments: Quick [id number] female presenting to the emergency department chief complaint of right-sided stabbing chest pain that started this morning. Patient states that yesterday evening she had epigastric abdominal pain onset with a heating pad on her abdomen to alleviate symptoms. States that pain radiates down the right side of her arm. Denies stated diaphoresis or nausea or vo miting. History of bilateral tubal ligation (Ana Perez) This is a 33 female to ER for right-sided chest pain starting this morning when she woke up some epigastric pain pain on the right side of abdomen to her back with no significant nausea vomiting fevers, no recent surgery no medical history takes no medications (Víctor Castano) - Related Data Home Medications Medication Instructions Recorded Confirmed No Known Home Medications 04/10/24 04/10/24 Allergies Allergy/AdvReac Type Severity Reaction Status Date / Time No Known Allergies Allergy Verified 04/10/24 17:06 Review of Systems ROS Other: All systems not noted in ROS Statement are negative. <Ana Perez - Last Filed: 04/10/24 13:23> ROS Other: All systems not noted in ROS Statement are negative. <Víctor Castano - Last Filed: 04/15/24 19:15> ROS Statement: Those systems with pertinent positive or pertinent negative responses have been documented in the HPI. EKG Findings - EKG Comments: EKG Findings:: EKG is sinus 91 MT 141 QRS 92 QTc 405 - EKG Results: EKG: interpreted by ERMD <Víctor Castano - Last Filed: 04/15/24 19:15> Past Medical History Past Medical History: GERD/Reflux Additional Past Medical History / Comment(s): CURRENT WOUND AT [facility], STATES BOTH SPOUSE AND CHILD HAVE HAD POS. MRSA INFECTIONS IN PAST, Gestational diabetes with two previous pregnancies. Positive anti-E antibody. History of Any Multi-Drug Resistant Organisms: None Reported, MRSA Date of last positivie culture/infection: 2017 MDRO Source:: mrsa Past Surgical History: Section, Orthopedic Surgery Additional Past Surgical History / Comment(s): left fooot surgery Past Anesthesia/Blood Transfusion Reactions: No Reported Reaction Additional Past Anesthesia/Blood Transfusion Reaction / Comment(s): . Past Psychological History: No Psychological Hx Reported Smoking Status: Never smoker Past Alcohol Use History: None Reported Past Drug Use History: None Reported - Past Family History Mother Family Medical History: Cancer Additional Family Medical History / Comment(s): mother had cervical cancer <Ana Perez - Last Filed: 04/10/24 13:23> General Exam Limitations: no limitations <Ana Perez - Last Filed: 04/10/24 13:23> General appearance: alert, in no apparent distress Head exam: Present: atraumatic, normocephalic, normal inspection Eye exam: Present: normal appearance, PERRL, EOMI. Absent: scleral icterus, conjunctival injection, periorbital swelling ENT exam: Present: normal exam, mucous membranes moist Neck exam: Present: normal inspection. Absent: tenderness, meningismus, lymph adenopathy Respiratory exam: Present: normal lung sounds bilaterally. Absent: respiratory distress, wheezes, rales, rhonchi, stridor Cardiovascular Exam: Present: regular rate, normal rhythm, normal heart sounds. Absent: systolic murmur, diastolic murmur, rubs, gallop, clicks GI/Abdominal exam: Present: soft, normal bowel sounds. Absent: distended, tenderness, guarding, rebound, rigid Extremities exam: Present: normal inspection, full ROM, normal capillary refill. Absent: tenderness, pedal edema, joint swelling, calf tenderness Back exam: Present: normal inspection Neurological exam: Present: alert, oriented X3, CN II-XII intact Psychiatric exam: Present: normal affect, normal mood Skin exam: Present: warm, dry, intact, normal color. Absent: rash <Víctor Castano - Last Filed: 04/15/24 19:15> - General Exam Comments Initial Comments: Visual Physical Exam Vital signs reviewed General: Well-appearing, nontoxic, no acute distress. Head: Normocephalic, atraumatic Eyes: PERRLA, EOMI ENT: Airway patent Chest: Nonlabored breathing Skin: No visual rash, normal skin tone Neuro: Alert and oriented 3 Musculoskeletal: No gross abnormalities (Stieler,Ana) Course <Víctor Castano - Last Filed: 04/15/24 19:15> Vital Signs 04/10/24 04/10/24 04/10/24 13:14 15:15 16:27 Temperature 97.8 F Pulse Rate 101 H 74 Pulse Rate [ 98 Right Radial] Respiratory 20 18 Rate Blood Pressure 127/84 116/79 O2 Sat by Pulse 99 100 Oximetry 04/10/24 04/10/24 04/10/24 16:59 17:07 17:18 Temperature Pulse Rate 68 72 80 Pulse Rate [ Right Radial] Respiratory 18 Rate Blood Pressure 134/78 O2 Sat by Pulse 98 Oximetry - Reevaluation(s) Reevaluation #1: Medical records reviewed (Víctor Castano) Reevaluation #2: Patient symptoms improved here in the ER (Víctor Castano) Reevaluation #3: Patient informed of results and questions answered (Víctor Castano) Reevaluation #4: Was pt. sent in by a medical professional or institution (, PA, GEODETIC ADVISOR, urgent care, hospital, or [facility]...) When possible be specific @ -no Did you speak to anyone other than the patient for history (EMS, parent, family, police, friend...)? What history was obtained from this source @ -no Did you review nursing and triage notes (agree or disagree)? Why? @ -agree Are old charts reviewed (outside hosp., previous admission, EMS record, old EKG, old radiological studies, urgent care reports/EKG's, [facility] records)? Report findings @ -yes Differential Diagnosis (chest pain, altered mental status, abdominal pain women, abdominal pain men, vaginal bleeding, weakness, fever, dyspnea, syncope, h eadache, dizziness, GI bleed, back pain, seizure, CVA, palpatations, mental health, musculoskeletal)? @ -prior EKG interpreted by me (3pts min.). @ -yes X-rays interpreted by me (1pt min.). @ -yes negative for acute disease CT interpreted by me (1pt min.). @ -no U/S interpreted by me (1pt. min.). @ -no What testing was considered but not performed or refused? (CT, X-rays, U/S, labs)? Why? @ -none What meds were considered but not given or refused? Why? @ -none Did you discuss the management of the patient with other professionals (professionals i.e. , PA, GEODETIC ADVISOR, lab, RT, psych nurse, social work faculty member, product sales engineer, teacher, customs and immigration officer, mental health case manager)? Give summary @ -no Was smoking cessation discussed for >3mins.? @ -no Was critical care preformed (if so, how long)? @ -no Were there social determinants of health that impacted care today? How? (Homelessness, low income, unemployed, alcoholism, drug addiction, transportation, low edu. Level, literacy, decrease access to med. care, long term, rehab)? @ -none Was there de-escalation of care discussed even if they declined (Discuss DNR or withdrawal of care, Hospice)? DNR status @ -no What co-morbidities impacted this encounter? (DM, HTN, Smoking, COPD, CAD, Cancer, CVA, ARF, Chemo, Hep., AIDS, mental health diagnosis, sleep apnea, morbid obesity)? @ -none Was patient admitted / discharged? Hospital course, mention meds given and route, prescriptions, significant lab abnormalities, going to OR and other pertinent info. @ - 33 female to ER for chest pain, no specific cause of chest pain found here in the ER feels well and can be discharged home Discharge Undiagnosed new problem with uncertain prognosis? @ -no Drug Therapy requiring intensive monitoring for toxicity (Heparin, Nitro, Insulin, Cardizem)? @ -no Were any procedures done? @ -no Diagnosis/symptom? @ -Chest pain Acute, or Chronic, or Acute on Chronic? @ -Acute Uncomplicated (without systemic symptoms) or Complicated (systemic symptoms)? @ -Complicated Side effects of treatment? @ -no Exacerbation, Progression, or Severe Exacerbation? @ -exacerbation Poses a threat to life or bodily function? How? (Chest pain, [place], [place], pneumonia, PE, COPD, DKA, ARF, appy, cholecystitis, CVA, Diverticulitis, Homicidal, Suicidal, threat to staff... and all critical care pts) @ -Yes with chest pain (Víctor Castano) Reevaluation #5: Differential Chest Pain: Stable Angina, Unstable Angina, STEMI, NSTEMI Aortic Dissection, Pneumothorax, Musculoskeletal, Esophageal Spasm GERD, Cholecystitis, Pancreatitis, Zoster, this is not meant to be an all-inclusive list. (Víctor Castano) Chest Pain MDM <Ana Perez - Last Filed: 04/10/24 13:23> <Víctor Castano - Last Filed: 04/15/24 19:15> - MDM I completed the quick note portion of this chart signed Ana Perez PA-C (Ana Preez) 33 female to ER for chest pain, no specific cause of chest pain found here in the ER feels well and can be discharged home (Víctor Castano) Disposition <Ana Perez - Last Filed: 04/10/24 13:23> Is patient prescribed a controlled substance at d/c from ED?: No Time of Disposition: 16:30 <Víctor Castano - Last Filed: 04/15/24 19:15> Clinical Impression: Atypical chest pain, Chest pain Disposition: HOME SELF-CARE Condition: Good Instructions (If sedation given, give patient instructions): Chest Pain (ED) Referrals: Mulugeta Stevenson MD [Primary Care Provider] - 1-2 days
[2024-04-10 13:44] LABS: Basophils % (A) 0 %; Eosinophils # (A) 0.1 k/uL (0-0.7); Eosinophils % (A) 3 %; HCT 36.6 % (34.0-46.0); HGB 11.9 gm/dL (11.4-16.0); Lymphocytes # (A) 0.8 k/uL (1.0-4.8); Lymphocytes % (A) 20 %; MCH 24.6 pg (25.0-35.0); MCHC 32.6 g/dL (31.0-37.0); MCV 75.5 fL (80.0-100.0); Mean Platelet Volume 7.3; Microcytosis Slight; Monocytes # (A) 0.2 k/uL (0-1.0); Monocytes % (A) 4 %; Neutrophils % (A) 72 %; Platelet Count 244 k/uL (150-450); RBC 4.85 m/uL (3.80-5.40); RDW 15.1 % (11.5-15.5); WBC 4.2 k/uL (3.8-10.6)
[2024-04-10 13:58] LABS: ALT 17 U/L (4-34); AST 17 U/L (14-36); African American GFR (CKD) >90 (>60 ml/min/1.73 sqM); Albumin 4.1 g/dL (3.5-5.0); Alkaline Phosphatase 81 U/L (38-126); Amylase 39 U/L (30-110); Anion Gap 9 mmol/L; Blood Urea Nitrogen 12 mg/dL (7-17); Calcium 9.1 mg/dL (8.4-10.2); Carbon Dioxide 24 mmol/L (22-30); Chloride 105 mmol/L (98-107); Glucose 104 mg/dL (74-99); Lipase 36 U/L (23-300); Non-African American GFR(CKD) >90 (>60 ml/min/1.73 sqM); Potassium 3.5 mmol/L (3.5-5.1); Sodium 138 mmol/L (137-145); Total Bilirubin 1.9 mg/dL (0.2-1.3); Total Protein 6.8 g/dL (6.3-8.2)
[2024-04-10 14:02] LABS: Partial Thromboplastin Time 25.6 sec (22.0-30.0); Prothrombin Time 10.8 sec (10.0-12.5)
--- NOTE | 2024-04-10 14:06 | XR ---
EXAMINATION TYPE: XR chest 2V DATE OF EXAM: 04/10/2024 2:02 PM COMPARISON: Chest radiographs from 01/10/2023 TECHNIQUE: XR chest 2V Frontal and lateral views of the chest. CLINICAL INDICATION:Female, 33 years old with history of Chest Pain; FINDINGS: Lungs/Pleura: There is no evidence of pleural effusion, focal consolidation, or pneumothorax. Pulmonary vascularity: Unremarkable. Heart/mediastinum: Cardiomediastinal silhouette is unremarkable. Musculoskeletal: No acute osseous pathology. IMPRESSION: No acute cardiopulmonary disease/process. [facility], , 04/10/2024 2:04 PM
[2024-04-10] MEDS: KETOROLAC 15 MG/ML 1 ML VIAL IVP STA (16:02)
[2024-04-10 16:28] VITALS: RESP 18
[2024-04-10 16:43] LABS: Influenza A Not Detected (Not Detectd); Influenza B Not Detected (Not Detectd); RSV Not Detected (Not Detectd)
[2024-04-10] MEDS: IPRATROPIUM-ALBUTEROL 3 ML NEB INHALATION STA (16:59)
[2024-04-10 17:19] VITALS: BP 134/78; PULSE 80
== END 2024-04-10 17:19 | disposition home or self-care (01) ==
LOC: EC 13:13
DX: R07.9 Chest pain, unspecified (principal)
CPT/HCPCS: 36415; 94640; 93005; 85379; 80053; 82150; 83690; 83735; 84484; 85025; 85610; 85730; 87636; 71046; 99285; 96374; J1885